=== PATIENT | male | born 1965 | race Caucasian/White ===

== ENCOUNTER 2017-08-03 13:09 | Emergency (ER) | payer MEDICAID, OTHER ==
[~2017-08-03] VITALS: Ht 170.2 cm; Wt 81.6 kg
--- OUTSIDE RECORDS SUMMARY | 2017-08-03 13:24 | XMS REPORT ---
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 Name Role Phone PAMELLA MURPHY PCP Unavailable PAMELLA MURPHY PreferredProvider Unavailable Allergies and Adverse Reactions Name Reaction Notes Aspirin Plan of Treatment Planned Activity Comments Planned Date Planned Time Plan/Goal IM Injection 11/17/2015 12:00 AM General health panel (comprehensive metabolic panel, CBC, TSH) 11/05/2016 12:00 AM LIPID PANEL 11/05/2016 12:00 AM HEMOGLOBIN A1C 11/05/2016 12:00 AM Drug Screen - Non Medicare 09/26/2014 12:00 AM Urine drug screen (amphetamine, barbiturate, cocaine, opiates, PCP, methaqualone, benzodiazepine) 09/26/2014 12:00 AM Medications Active Name Start Date Estimated Completion Date SIG Comments Aspir-81 81 mg oral tablet,delayed release (DR/EC) take 1 tablet (81 mg ) by oral route once daily metformin 500 mg oral tablet extended release 24 hr 08/15/2014 take 2 tablets (1,000 mg) by oral route once daily with the evening meal for a week then increase to 2 tabs BID with meals Lantus Solostar 100 unit/mL (3 mL) subcutaneous insulin pen 08/15/2014 inject by subcutaneous route 10U at HS Replaced/Ret[employer] Drug 31 miscellaneous needle 08/15/2014 use as directed [employer] Ultra System Kit miscellaneous kit 08/30/2014 use as directed Test Blood Sugar BID glimepiride 2 mg oral tablet 11/18/2014 take 1 tablet (2 mg) by oral route once daily Lantus Solostar 100 unit/mL (3 mL) subcutaneous insulin pen 12/27/2014 INJECT 10 UNITS SUBCUTANEOUSLY DAILY AT BEDTIME pravastatin 40 mg oral tablet 04/27/2015 take 1 tablet (40 mg) by oral route once daily at bedtime Lantus Solostar 100 unit/mL (3 mL) subcutaneous insulin pen 04/27/2015 INJECT 10 UNITS SUBCUTANEOUSLY DAILY AT BEDTIME OneTouch Ultra Test miscellaneous strip 05/03/2015 USE TO TEST BLOOD SUGAR THREE TIMES DAILY NEEDED DIABETES BD Insulin Pen Needle UF Mini 31 gauge x 16" miscellaneous needle 05/03/2015 USE DIRECTED Lancets,Ultra Thin 26 gauge miscellaneous misc 06/26/2015 Check blood sugars TID glimepiride 2 mg oral tablet 06/26/2015 take 1 tablet (2 mg) by oral route once daily metformin 500 mg oral tablet extended release 24 hr 08/15/2015 TAKE 2 TABLETS BY MOUTH ONCE DAILY WITH EVENING MEAL FOR 7 DAYS THEN INCREASE TO 2 TABLETS TWICE DAILY WITH MEALS metformin 500 mg oral tablet extended release 24 hr 09/18/2015 TAKE 2 TABLETS BY MOUTH ONCE DAILY WITH EVENING MEAL FOR 7 DAYS THEN INCREASE TO 2 TABLETS TWICE DAILY WITH MEALS OneTouch Ultra Test miscellaneous strip 10/30/2015 USE TO TEST BLOOD SUGAR THREE TIMES DAILY NEEDED DIABETES pravastatin 40 mg oral tablet 10/30/2015 take 1 tablet (40 mg) by oral route once daily at bedtime Ventolin HFA 90 mcg/actuation inhalation HFA aerosol inhaler 11/14/2015 inhale 2 puffs (180 mcg) by inhalation route every 4 hours as needed metformin 500 mg oral tablet extended release 24 hr 12/05/2015 TAKE 2 TABLETS BY MOUTH ONCE DAILY WITH EVENING MEAL FOR 7 DAYS THEN INCREASE TO 2 TABLETS TWICE DAILY WITH MEALS Ventolin HFA 90 mcg/actuation inhalation HFA aerosol inhaler 01/12/2016 INHALE TWO PUFFS BY MOUTH EVERY 4 HOURS NEEDED metformin 500 mg oral tablet extended release 24 hr 02/28/2016 TAKE 2 TABLETS BY MOUTH ONCE DAILY WITH EVENING MEAL FOR 7 DAYS THEN INCREASE TO 2 TABLETS TWICE DAILY WITH MEALS BD Insulin Pen Needle UF Mini 31 gauge x 16" miscellaneous needle 03/04/2016 USE DIRECTED metformin 500 mg oral tablet extended release 24 hr 03/26/2016 TAKE 2 TABLETS BY MOUTH ONCE DAILY WITH EVENING MEAL FOR 7 DAYS THEN INCREASE TO 2 TABLETS TWICE DAILY WITH MEALS hydrocodone-acetaminophen 10-325 mg oral tablet take 1 tablet by oral route every 6 hours as needed for pain pravastatin 40 mg oral tablet 07/03/2016 TAKE 1 TABLET BY MOUTH ONCE DAILY AT BEDTIME metformin 500 mg oral tablet extended release 24 hr 07/03/2016 TAKE 2 TABLETS BY MOUTH ONCE DAILY WITH EVENING MEAL FOR 7 DAYS THEN INCREASE TO 2 TABLETS TWICE DAILY WITH MEALS Voltaren 1 % topical gel 08/05/2016 apply 2 gram to the affected area(s) by topical route 4 times per day glimepiride 2 mg oral tablet 08/14/2016 take 2 tablets (4 mg) by oral route once daily for 30 days ONETOUCH JAMIE ULTRA BL 09/17/2016 TEST BLOOD SUGAR THREE TIMES DAILY NEEDED Lantus Solostar 100 unit/mL (3 mL) subcutaneous insulin pen 09/17/2016 INJECT 10 UNITS SUBCUTANEOUSLY DAILY AT BEDTIME metformin 500 mg oral tablet extended release 24 hr 10/18/2016 01/16/2017 TAKE 2 TABLETS BY MOUTH TWICE DAILY WITH MEALS Name Start Date Expiration Date SIG Comments carvedilol 6.25 mg oral tablet take 1 tablet (6.25 mg) by oral route 2 times per day with food enalapril maleate 5 mg oral tablet take 1 tablet (5 mg) by oral route once daily Anaprox DS 550 mg oral tablet 08/15/2014 take 1 tablet (550 mg) by oral route every 12 hours as needed cyclobenzaprine 10 mg oral tablet 08/15/2014 take 1 tablet by oral route 3 times a day As Needed Medrol (Zach) 4 mg oral tablets,dose pack 09/26/2014 take as directed triamcinolone acetonide 0.5 % topical ointment 01/30/2015 apply a thin layer to the affected area(s) by topical route 3 times per day Zithromax Z-Zach 250 mg oral tablet 01/30/2015 02/04/2015 take 2 tablets (500 mg ) by oral route once daily for 1 day then 1 tablet (250 mg) by oral route once daily for 4 days Ciprodex 0.3-0.1 % otic drops,suspension 11/17/2015 11/24/2015 instill 4 drops into right ear by otic route 2 times per day for 7 days Levaquin 750 mg oral tablet 11/21/2015 11/26/2015 take 1 tablet (750 mg) by oral route once daily for 5 days clindamycin HCl 300 mg oral capsule 11/28/2015 12/08/2015 take 1 capsule by oral route 3 times a day for 10 days naproxen sodium 550 mg oral tablet 01/25/2016 take 1 tablet (550 mg) by oral route every 12 hours as needed tramadol 50 mg oral tablet 01/25/2016 take 1 tablet (50 mg) by oral route every 6 hours as needed glimepiride 2 mg oral tablet 02/08/2016 09/05/2016 take 2 tablets (4 mg) by oral route once daily for 30 days One Touch Test stips 03/18/2016 07/16/2016 Test Blood sugar TID PRN for Diabetes Type 2 Discontinued Name Start Date Discontinued Date SIG Comments metformin 500 mg oral tablet 08/15/2014 take 1 tablet (500 mg) by oral route 2 times per day with morning and evening meals glipizide 10 mg oral tablet 08/15/2014 take 1 tablet (10 mg) by oral route 2 times per day before meals ran out, no coverage Glucometer II 08/15/2014 08/30/2014 Glucometer, pharmacists choice meter and strips DX 250, to test BID Contour Test Strips miscellaneous strip 08/23/2014 08/30/2014 use as directed Neurontin 300 mg oral capsule 09/26/2014 01/19/2015 take 1 capsule (300 mg) by oral route 3 times per day for 30 days pt states it didnt work hydrocodone-ibuprofen 7.5-200 mg oral tablet 11/18/2014 11/17/2015 take 1 tablet by oral route 3 times a day as needed clopidogrel 75 mg oral tablet 04/27/2015 01/10/2016 take 1 tablet (75 mg) by oral route once daily doxycycline hyclate 100 mg oral capsule 11/14/2015 11/17/2015 take 1 capsule ( 100 mg) by oral route every 12 hours for 10 days promethazine-codeine 6.25-10 mg/5 mL oral syrup 11/14/2015 11/17/2015 take 5 milliliters by oral route every 4-6 hours as needed, not to exceed 30 mL in 24 hours Sheldon 7.5-325 mg oral tablet 11/17/2015 01/25/2016 take 1 tablet by oral route every 4-6 hours as needed for pain Problem List Description Status Onset Diabetes Mellitus, Type II, Uncontrolled Active Anemia Active Hyperlipidemia Active Degeneration of lumbar intervertebral disc Active 08/29/2014 Lumbago Active 08/29/2014 Hypertension Active 10/19/2014 Acute suppurative otitis media of right ear with spontaneous rupture of tympanic membrane, recurrence not specified Active 11/17/2015 Coronary artery disease due to lipid rich plaque Active 05/21/2016 Type 2 diabetes mellitus Active 05/21/2016 Vital Signs Date Time BP-Sys(mm[Hg] BP-Rebecca(mm[Hg]) HR(bpm) RR(rpm) Temp WT HT HC BMI BSA BMI Percentile O2 Sat(%) 08/05/2016 9:43:00 AM 122 mmHg 80 mmHg 76 bpm 14 rpm 95.6 F 200 lbs 68 in 30.41 kg/m2 2.09 m2 99 % 05/21/2016 10:35:00 AM 152 mmHg 80 mmHg 76 bpm 18 rpm 96.5 F 202 lbs 67 in 31.6373 kg/m 2.0812 m 97 % 01/25/2016 10:14:00 AM 140 mmHg 80 mmHg 85 bpm 16 rpm 96.5 F 192.5 lbs 67 in 30.15 kg/m2 2.03 m2 97 % 01/10/2016 10:29:00 AM 112 mmHg 80 mmHg 67 bpm 18 rpm 96.5 F 198 lbs 67 in 31.0109 kg/m 2.0605 m 99 % 12/07/2015 3:07:00 PM 130 mmHg 70 mmHg 76 bpm 11/28/2015 10:41:00 AM 142 mmHg 88 mmHg 70 bpm 16 rpm 96.8 F 199 lbs 67 in 31.1675 kg/m 2.0657 m 97 % 11/21/2015 10:42:00 AM 140 mmHg 80 mmHg 75 bpm 96.6 F 197.75 lbs 98 % 11/17/2015 10:59:00 AM 130 mmHg 78 mmHg 76 bpm 22 rpm 97.3 F 201 lbs 97 % 11/14/2015 1:58:00 PM 138 mmHg 84 mmHg 84 bpm 20 rpm 97.2 F 199.75 lbs 67 in 31.28 kg/m2 2.07 m2 98 % 09/06/2015 10:26:00 AM 132 mmHg 76 mmHg 72 bpm 16 rpm 98.2 F 194 lbs 67 in 30.3844 kg/m 2.0396 m 97 % 01/31/2015 3:15:00 PM 142 mmHg 64 mmHg 86 bpm 18 rpm 96.2 F 191.312 lbs 67 in 29.96 kg/m2 2.03 m2 99 % 01/23/2015 10:26:00 AM 144 mmHg 80 mmHg 90 bpm 18 rpm 96.8 F 191.25 lbs 100 % 01/19/2015 10:45:00 AM 146 mmHg 86 mmHg 81 bpm 18 rpm 97.4 F 192 lbs 67 in 30.0711 kg/m 2.03 m2 100 % 12/19/2014 10:33:00 AM 140 mmHg 88 mmHg 98 bpm 18 rpm 96.9 F 183 lbs 67 in 28.66 kg/m2 1.9809 m 100 % 11/18/2014 10:37:00 AM 130 mmHg 66 mmHg 81 bpm 18 rpm 97.1 F 191.75 lbs 97 % 10/18/2014 1:34:00 PM 82 bpm 18 rpm 97.1 F 192 lbs 67 in 30.07 kg/m2 2.029 m 98 % 09/26/2014 1:34:00 PM 132 mmHg 68 mmHg 72 bpm 18 rpm 97.8 F 188 lbs 67 in 29.4447 kg/m 2.01 m2 08/11/2014 10:38:00 AM 132 mmHg 74 mmHg 84 bpm 18 rpm 98.2 F 186.5 lbs 67 in 29.21 kg/m2 1.9998 m 99 % Social History Name Description Comments lives with girlfriend Lives with Daughter Engaged Did not graduate from High School Chewing Tobacco Denies substance abuse denies alcohol use UNEMPLOYEED History of Procedures Date Ordered Description Order Status 08/29/2015 12:00 AM ROUTINE VENIPUNCTURE Reviewed 08/29/2015 12:00 AM LIPID PANEL Reviewed 08/29/2015 12:00 AM GLYCOSYLATED HEMOGLOBIN TEST Reviewed 11/17/2015 12:00 AM Rocephin 1 gram [facility]#[id number] Reviewed 12/06/2015 12:00 AM ROUTINE VENIPUNCTURE Reviewed 12/06/2015 12:00 AM GENERAL HEALTH PANEL Reviewed 12/06/2015 12:00 AM LIPID PANEL Returned 12/06/2015 12:00 AM GLYCOSYLATED HEMOGLOBIN TEST Returned 01/25/2016 12:00 AM RADEX SHOULDER COMPLETE MINIMUM 2 VIEWS Reviewed 03/19/2016 12:00 AM ROUTINE VENIPUNCTURE Reviewed 03/19/2016 12:00 AM LIPID PANEL Returned 03/19/2016 12:00 AM GLYCOSYLATED HEMOGLOBIN TEST Returned 03/19/2016 12:00 AM GENERAL HEALTH PANEL Returned 05/29/2016 12:00 AM IM ADM PRQ ID SUBQ/IM NJXS 1 VACCINE Reviewed 05/29/2016 12:00 AM PNEUMOCOCCAL VACC 13 JOSE IM Reviewed 07/02/2016 12:00 AM ROUTINE VENIPUNCTURE Reviewed 07/02/2016 12:00 AM GLYCOSYLATED HEMOGLOBIN TEST Returned 07/02/2016 12:00 AM GENERAL HEALTH PANEL Returned 07/02/2016 12:00 AM LIPID PANEL Returned 11/05/2016 12:00 AM COLLECTION VENOUS BLOOD VENIPUNCTURE Reviewed 08/12/2014 12:00 AM ROUTINE VENIPUNCTURE Reviewed 08/12/2014 12:00 AM COMPLETE CBC W/AUTO DIFF WBC Reviewed 08/12/2014 12:00 AM COMPREHEN METABOLIC PANEL Reviewed 08/12/2014 12:00 AM LIPID PANEL Reviewed 08/12/2014 12:00 AM GLYCOSYLATED HEMOGLOBIN TEST Reviewed 08/12/2014 12:00 AM ASSAY THYROID STIM HORMONE Reviewed 09/26/2014 12:00 AM MRI LUMBAR SPINE W/O & W/DYE Reviewed 11/15/2014 12:00 AM ROUTINE VENIPUNCTURE Reviewed 11/15/2014 12:00 AM COMPREHEN METABOLIC PANEL Reviewed 11/15/2014 12:00 AM GLYCOSYLATED HEMOGLOBIN TEST Reviewed Results Summary Data and Description Results 08/12/2014 2:24 PM WBC 8.9 RBC 5.18 HGB 17.0 g/dLHCT 46.90 %MCV 91.0 fLMCH 32.80 pgMCHC 36.20 g/dLRDW SD 42 RDW CV 12.70 %MPV 11.30 fLPLT 165 NRBC# 0.00 NRBC% 0.0 %NEUT 59.90 %%LYMP 31.20 %%MONO 6.30 %%EOS 2.10 %%BASO 0.50 %#NEUT 5.32 #LYMP 2.77 #MONO 0.56 #EOS 0.19 #BASO 0.04 MANUAL DIFF NOT IND TRIGLYCERIDES 136.0 mg/dLCHOLESTEROL 123.0 mg/dLHDL 31.0 mg/dLTOT CHOL/HDL 4.0 LDL (CALC) 65.0 mg/dLGLUCOSE 304.0 mg/dLSODIUM 138.0 mmol/LPOTASSIUM 4.50 mmol/ LCHLORIDE 100.0 mmol/LCO2 30.0 mmol/LBUN 21.0 mg/dLCREATININE 0.90 mg/dLSGOT/ AST 24.0 IU/LSGPT/ALT 45.0 IU/LALK PHOS 61.0 IU/LTOTAL PROTEIN 7.10 g/dLALBUMIN 4.40 g/dLTOTAL BILI 0.70 mg/dLCALCIUM 9.90 mg/dLAGE 49 GFR NonAA 89 GFR AA 108 eGFR 60 eGFR AA* 60 TSH 0.820 uIU/mLHGB A1C 12.10 %Est Avg Glucose 300.6 mg/dL 11/15/2014 2:46 PM GLUCOSE 217.0 mg/dLSODIUM 140.0 mmol/LPOTASSIUM 4.20 mmol/ LCHLORIDE 105.0 mmol/LCO2 25.0 mmol/LBUN 16.0 mg/dLCREATININE 0.90 mg/dLSGOT/ AST 19.0 IU/LSGPT/ALT 38.0 IU/LALK PHOS 46.0 IU/LTOTAL PROTEIN 6.80 g/dLALBUMIN 4.50 g/dLTOTAL BILI 0.60 mg/dLCALCIUM 9.80 mg/dLAGE 49 GFR NonAA 89 GFR AA 108 eGFR >60 mL/min/1.73 m2eGFR AA* >60 HGB A1C 9.80 %Est Avg Glucose 234.6 mg/dL 08/29/2015 4:06 PM PSA TOTAL 0.710 ng/mLHemoglobin A1c 7.20 %Estim. Avg Glu (eAG ) 160 TRIGLYCERIDES 122.0 mg/dLCHOLESTEROL 152.0 mg/dLHDL 34.0 mg/dLTOT CHOL/ HDL 4.5 LDL (CALC) 94.0 mg/dL 12/06/2015 2:12 PM TRIGLYCERIDES 110.0 mg/dLCHOLESTEROL 146.0 mg/dLHDL 35.0 mg/ dLTOT CHOL/HDL 4.2 LDL (CALC) 89.0 mg/dLGLUCOSE 146.0 mg/dLSODIUM 142.0 mmol/ LPOTASSIUM 4.20 mmol/LCHLORIDE 105.0 mmol/LCO2 30.0 mmol/LBUN 14.0 mg/ dLCREATININE 0.90 mg/dLSGOT/AST 28.0 IU/LSGPT/ALT 55.0 IU/LALK PHOS 66.0 IU/ LTOTAL PROTEIN 6.0 g/dLALBUMIN 4.10 g/dLTOTAL BILI 0.50 mg/dLCALCIUM 9.20 mg/ dLAGE 50 GFR NonAA 89 GFR AA 108 eGFR >60 mL/min/1.73meGFR AA* >60 WBC 7.9 RBC 4.86 HGB 15.60 g/dLHCT 44.60 %MCV 92.0 fLMCH 32.10 pgMCHC 35.0 g/dLRDW SD 43 RDW CV 12.80 %MPV 10.80 fLPLT 188 NRBC# 0.00 NRBC% 0.0 %NEUT 54.80 %%LYMP 35.20 %%MONO 6.60 %%EOS 2.30 %%BASO 0.80 %#NEUT 4.31 #LYMP 2.77 #MONO 0.52 #EOS 0.18 #BASO 0.06 MANUAL DIFF NOT IND TSH 2.150 uIU/mLHemoglobin A1c 8.60 %Estim. Avg Glu (eAG) 200 03/19/2016 2:50 PM WBC 8.7 RBC 4.87 HGB 15.50 g/dLHCT 45.60 %MCV 94.0 fLMCH 31.80 pgMCHC 34.0 g/dLRDW SD 41 RDW CV 11.90 %MPV 10.50 fLPLT 190 NRBC# 0.00 NRBC% 0.0 %NEUT 44.90 %%LYMP 46.0 %%MONO 5.70 %%EOS 2.70 %%BASO 0.60 %#NEUT 3.90 #LYMP 3.98 #MONO 0.49 #EOS 0.23 #BASO 0.05 MANUAL DIFF NOT IND TSH 2.690 uIU/mLHGB A1C 7.0 %Est Avg Glucose 154.2 mg/dLTRIGLYCERIDES 66.0 mg/ dLCHOLESTEROL 131.0 mg/dLHDL 37.0 mg/dLTOT CHOL/HDL 3.5 LDL (CALC) 81.0 mg/ dLGLUCOSE 100.0 mg/dLSODIUM 139.0 mmol/LPOTASSIUM 4.50 mmol/LCHLORIDE 104.0 mmol /LCO2 26.0 mmol/LBUN 21.0 mg/dLCREATININE 0.80 mg/dLSGOT/AST 27.0 IU/LSGPT/ALT 45.0 IU/LALK PHOS 51.0 IU/LTOTAL PROTEIN 6.30 g/dLALBUMIN 4.20 g/dLTOTAL BILI 0.40 mg/dLCALCIUM 9.50 mg/dLAGE 51 GFR NonAA 102 GFR AA 124 eGFR >60 mL/min/ 1.73meGFR AA* >60 07/02/2016 2:14 PM WBC 9.7 RBC 4.91 HGB 15.90 g/dLHCT 45.20 %MCV 92.0 fLMCH 32.40 pgMCHC 35.20 g/dLRDW SD 41 RDW CV 12.20 %MPV 10.50 fLPLT 192 NRBC# 0.00 NRBC% 0.0 %NEUT 53.30 %%LYMP 37.70 %%MONO 5.90 %%EOS 2.10 %%BASO 0.70 %#NEUT 5.20 #LYMP 3.67 #MONO 0.57 #EOS 0.20 #BASO 0.07 MANUAL DIFF NOT IND TRIGLYCERIDES 73.0 mg/dLCHOLESTEROL 134.0 mg/dLHDL 35.0 mg/dLTOT CHOL/HDL 3.8 LDL (CALC) 84.0 mg/dLGLUCOSE 195.0 mg/dLSODIUM 138.0 mmol/LPOTASSIUM 3.80 mmol/ LCHLORIDE 102.0 mmol/LCO2 28.0 mmol/LBUN 18.0 mg/dLCREATININE 0.80 mg/dLSGOT/ AST 21.0 IU/LSGPT/ALT 32.0 IU/LALK PHOS 52.0 IU/LTOTAL PROTEIN 6.40 g/dLALBUMIN 4.20 g/dLTOTAL BILI 0.30 mg/dLCALCIUM 9.30 mg/dLAGE 51 GFR NonAA 102 GFR AA 124 eGFR >60 mL/min/1.73meGFR AA* >60 HGB A1C 7.10 %Est Avg Glucose 157.1 mg/ dLTSH 2.20 uIU/mL History Of Immunizations Name Date Admin Mfg Name Mfg Code Trade Name Lot# Route Inj Vis Given Vis Pub CVX Pneumococcal 05/29/2016 Pf[employer] PFR Prevnar 13 [id number] Intramuscular Left Deltoid 05/29/2016 06/29/2015 133 History of Past Illness Name Date of Onset Comments Anemia ITP Diabetes Mellitus, Type II, Uncontrolled Hyperlipidemia Degeneration of lumbar intervertebral disc 08/29/2014 Lumbago 08/29/2014 Hypertension 10/19/2014 Acute suppurative otitis media of right ear with spontaneous rupture of tympanic membrane, recurrence not specified 11/17/2015 Coronary artery disease due to lipid rich plaque 05/21/2016 Type 2 diabetes mellitus 05/21/2016 Hypertension Aug 12 2014 9:44AM Diabetes Mellitus, Type II Aug 12 2014 9:44AM Hyperlipidemia Aug 12 2014 9:44AM Diabetes Mellitus, Type II, Uncontrolled Aug 11 2014 10:41AM Anemia Aug 11 2014 10:41AM Hyperlipidemia Aug 11 2014 10:41AM Lumbago Aug 11 2014 10:41AM Degeneration of lumbar intervertebral disc Aug 11 2014 10:41AM Lumbar Radiculitis Feb 2014 1:42PM Myofascial pain Feb 2014 1:42PM Post laminectomy syndrome Feb 2 2014 1:42PM Cauda equina compression Feb 2014 1:42PM Drug abuse and dependence b 2014 1:42PM Chronic pain disorder b 2014 2:55PM Degeneration of lumbar intervertebral disc Oct 18 2014 1:35PM Lumbago Oct 18 2014 1:35PM Diabetes Mellitus, Type II, Uncontrolled Oct 18 2014 1:35PM Hyperlipidemia Oct 18 2014 1:35PM Hypertension Oct 18 2014 1:35PM Diabetes Mellitus, Type II Nov 15 2014 2:50PM Degeneration of lumbar intervertebral disc Nov 18 2014 10:39AM Hypertension Nov 18 2014 10:39AM Lumbago Nov 18 2014 10:39AM Diabetes Mellitus, Type II, Uncontrolled Nov 18 2014 10:39AM Hyperlipidemia Nov 18 2014 10:39AM Hypertension Dec 19 2014 10:35AM Diabetes Mellitus, Type II, Uncontrolled Dec 19 2014 10:35AM Hyperlipidemia Dec 19 2014 10:35AM Hypertension Jan 19 2015 10:48AM Lumbago Jan 19 2015 10:48AM Diabetes Mellitus, Type II, Uncontrolled Jan 19 2015 10:48AM Hyperlipidemia Jan 19 2015 10:48AM Poison sumac Jan 23 2015 10:28AM Acute bronchitis Jan 31 2015 3:20PM Hypertension Aug 29 2015 8:45AM Diabetes Mellitus, Type II Aug 29 2015 8:45AM Hyperlipidemia Aug 29 2015 8:45AM Screening for prostate cancer Aug 29 2015 8:45AM Degeneration of lumbar intervertebral disc Sep 06 2015 10:29AM Hypertension Sep 06 2015 10:29AM Diabetes Mellitus, Type II, Uncontrolled Sep 06 2015 10:29AM Hyperlipidemia Sep 06 2015 10:29AM Acute bacterial otitis media, right Nov 14 2015 1:59PM Acute bronchitis Nov 14 2015 1:59PM Acute suppurative otitis media of right ear with spontaneous rupture of tympanic membrane, recurrence not specified Nov 17 2015 11:01AM Acute bronchitis, unspecified organism Nov 17 2015 11:01AM Acute suppurative otitis media of right ear with spontaneous rupture of tympanic membrane, recurrence not specified Improving Nov 21 2015 10:46AM Otitis media of right ear follow-up, not resolved Nov 28 2015 10:44AM Hypertension Dec 06 2015 8:17AM Diabetes mellitus, type 2 Dec 06 2015 8:17AM Hyperlipidemia Dec 06 2015 8:17AM Right anterior shoulder pain Jan 25 2016 10:15AM Diabetes Mellitus, Type II, Uncontrolled Jan 10 2016 10:33AM Hypertension Feb 21 2016 9:11AM Diabetes Mellitus, Type II, Uncontrolled Feb 21 2016 9:11AM Anemia Feb 21 2016 9:11AM Hyperlipidemia Feb 21 2016 9:11AM Hypertension Mar 19 2016 8:19AM Diabetes Mellitus, Type II Mar 19 2016 8:19AM Hyperlipidemia Mar 19 2016 8:19AM Hypertension May 21 2016 10:40AM Lumbago May 21 2016 10:40AM Hyperlipidemia May 21 2016 10:40AM Type 2 diabetes mellitus May 21 2016 10:40AM Coronary artery disease due to lipid rich plaque May 21 2016 10:40AM Pneumonia vaccine May 29 2016 4:52PM Hypertension Jul 02 2016 8:30AM Diabetes Mellitus, Type II Jul 02 2016 8:30AM Hyperlipidemia Jul 02 2016 8:30AM Atherosclerotic heart disease of [place] coronary artery without angina pectoris Aug 05 2016 9:45AM Coronary atherosclerosis due to lipid rich plaque Aug 05 2016 9:45AM Degeneration of lumbar intervertebral disc Aug 05 2016 9:45AM Hypertension Aug 05 2016 9:45AM Lumbago Aug 05 2016 9:45AM Type 2 diabetes mellitus Aug 05 2016 9:45AM Hyperlipidemia Aug 05 2016 9:45AM Biceps tendinitis of right upper extremity Aug 05 2016 9:45AM Hypertension Nov 05 2016 10:19AM Diabetes mellitus, type II Nov 05 2016 10:19AM Payers Insurance Name Company Name Plan Name Plan Number Policy Number Policy Group Number Start Date [facility] Comm [id number] Sunday, 2013 [facility] Comm Plan of [id number] N/A History of Encounters Visit Date Visit Type Provider 11/05/2016 Laboratory PAMELLA MURPHY [employer]TER 08/05/2016 Office visit PAMELLA MURPHY SH[employer] SORTER 07/02/2016 Laboratory PAMELLA ShieldsJuan Francisco MURPHY SHIRT SORTER 05/29/2016 Nurse visit PAMELLA MURPHY SH[employer] SORTER 05/21/2016 Office visit PAMELLA MURPHY SH[employer] SORTER 03/19/2016 Laboratory PAMELLA MURPHY SH[employer] SORTER 01/25/2016 Office visit PAMELLA MURPHY SH[employer] SORTER 01/10/2016 Office visit PAMELLA MURPHY SH[employer] SORTER 12/07/2015 Office visit PAMELLA MURPHY SH[employer] SORTER 12/06/2015 Laboratory PAMELLA MURPHY SH[employer] SORTER 11/28/2015 Office visit PAMELLA MURPHY SH[employer] SORTER 11/21/2015 Office visit PAMELLA MURPHY SHIRT SORTER 11/17/2015 Office visit Bhakti Ennis [employer] 11/14/2015 Office visit PAMELLA MURPHY SH[employer] SORTER 09/06/2015 Office visit PAMELLA MURPHY SH[employer] SORTER 08/29/2015 Voided PAMELLA MURPHY SH[employer] S[employer]TER 01/31/2015 Office visit PAMELLA MURPHY SH[employer] SORTER 01/23/2015 Office visit PAMELLA MURPHY SH[employer] SORTER 01/19/2015 Office visit PAMELLA MURPHY SH[employer] SORTER 12/19/2014 Office visit PAMELLA MURPHY SH[employer] SORTER 11/18/2014 Office visit PAMELLA MURPHY SHIRT SORTER 11/15/2014 Office visit PAMELLA MRUPHY SHIRT SORTER 11/05/2014 Hospital Gil Gtz MD 10/18/2014 Office visit PAMELLA MURPHY [employer] 09/26/2014 Office visit Adeel Hodgson MD 08/12/2014 Laboratory PAMELLA MURPHY [employer] 08/11/2014 Office visit PAMELLA MURPHY [employer]TER
--- OUTSIDE RECORDS SUMMARY | 2017-08-03 13:25 | XMS REPORT ---
Author Author PAMELLA MURPHY [facility] Address [address] [facility] [address] [place], [place] [id number] Care Team Providers Care Ball Truing Machine Operator Name Role Phone PAMELLA MURPHY PCP Unavailable Allergies and Adverse Reactions Name Reaction Notes Aspirin Plan of Treatment Planned Activity Comments Planned Date Planned Time Plan/Goal GLYCOSYLATED HEMOGLOBIN TEST 08/29/2015 12:00 AM LIPID PANEL 08/29/2015 12:00 AM THER/PROPH/DIAG INJ SC/IM 11/17/2015 12:00 AM GENERAL HEALTH PANEL 12/06/2015 12:00 AM Multiple drug screening detection 09/26/2014 12:00 AM Urine drug screen (amphetamine, [...] 31 miscellaneous needle 08/15/2014 use as directed [employer] Ultra System Kit miscellaneous kit 08/30/2014 use [...] Pen Needle UF Mini 31 gauge x 11/07" miscellaneous needle 05/03/2015 USE DIRECTED Lancets,Ultra Thin [...] inhalation route every 4 hours as needed [place] 7.5-325 mg oral tablet 11/17/2015 take 1 tablet by oral route every 4 -6 hours as needed for pain metformin 500 mg oral tablet extended release 24 hr 12/05/2015 TAKE 2 TABLETS BY MOUTH ONCE DAILY WITH EVENING MEAL FOR 7 DAYS THEN INCREASE TO 2 TABLETS TWICE DAILY WITH MEALS glimepiride 2 mg oral tablet 01/12/2016 08/09/2016 take 2 tablets by oral route 2 times a day for 30 days Name Start Date Expiration Date SIG Comments [...] oral tablets,dose pack 09/26/2014 take as directed One Touch Test stips 12/20/2014 04/19/2015 Test Blood sugar TID PRN for Diabetes Type 2 triamcinolone acetonide 0.5 % topical ointment 01/30/2015 [...] 3 times a day for 10 days Discontinued Name Start Date Discontinued Date SIG [...] to exceed 30 mL in 24 hours Problem List Description Status Onset Diabetes Mellitus, Type II, Uncontrolled Active Anemia Active Hyperlipidemia Active Degeneration of lumbar intervertebral disc Active 08/29/2014 Lumbago Active 08/29/2014 Hypertension Active 10/19/2014 Acute suppurative otitis media of right ear with spontaneous rupture of tympanic membrane, recurrence not specified Active 11/17/2015 Vital Signs Date Time BP-Sys(mm[Hg] BP-Rebecca(mm[Hg]) HR(bpm) RR(rpm) Temp WT HT HC BMI BSA BMI Percentile O2 Sat(%) 01/10/2016 10:29:00 AM 112 mmHg 80 mmHg 67 bpm 18 rpm 96.5 F 198 lbs 67 in 31.01 kg/m2 2.06 m2 99 % 11/28/2015 10:41:00 AM 142 mmHg 88 mmHg [...] rpm 97.4 F 192 lbs 67 in 30.07 kg/m2 2.03 m2 100 % 12/19/2014 10:33:00 AM 140 mmHg 88 mmHg 98 bpm 18 rpm 96.9 F 183 lbs 67 in 28.6616 kg/m 1.9809 m 100 % 11/18/2014 10:37:00 AM 130 mmHg 66 mmHg 81 bpm 18 rpm 97.1 F 191.75 lbs 97 % 10/18/2014 1:34:00 PM 82 bpm 18 rpm 97.1 F 192 lbs 67 in 30.0711 kg/m 2.029 m 98 % 09/26/2014 1:34:00 PM 132 mmHg 68 mmHg 72 bpm 18 rpm 97.8 F 188 lbs 67 in 29.44 kg/m2 2.01 m2 08/11/2014 10:38:00 AM 132 mmHg 74 mmHg 84 bpm 18 rpm 98.2 F 186.5 lbs 67 in 29.2097 kg/m 1.9998 m 99 % Social History Name Description Comments lives with girlfriend Lives with Daughter Engaged Did not graduate from High School Chewing Tobacco Denies substance abuse denies alcohol use UNEMPLOYEED History of Procedures Date Ordered Description Order Status 08/29/2015 12:00 AM GLYCOSYLATED HEMOGLOBIN TEST Returned 11/17/2015 12:00 AM Rocephin 1 gram [facility]#[id number] Reviewed 12/06/2015 12:00 AM LIPID PANEL Returned 12/06/2015 12:00 AM GLYCOSYLATED HEMOGLOBIN TEST Returned 08/12/2014 12:00 AM ROUTINE VENIPUNCTURE Reviewed 08/12/2014 12:00 AM COMPLETE CBC W/AUTO DIFF WBC Returned 08/12/2014 12:00 AM COMPREHEN METABOLIC PANEL Returned 08/12/2014 12:00 AM LIPID PANEL Returned 08/12/2014 12:00 AM GLYCOSYLATED HEMOGLOBIN TEST Returned 08/12/2014 12:00 AM ASSAY THYROID STIM HORMONE Returned 09/26/2014 12:00 AM MRI LUMBAR SPINE W/O & W/DYE Returned 11/15/2014 12:00 AM ROUTINE VENIPUNCTURE Reviewed 11/15/2014 12:00 AM COMPREHEN METABOLIC PANEL Reviewed 11/15/2014 12:00 AM GLYCOSYLATED HEMOGLOBIN TEST Reviewed Results Summary Data and Description Results 08/12/2014 2:24 PM WBC 8.9 RBC 5.18 HGB 17.0 g/dLHCT 46.90 %MCV 91.0 fLMCH 32.80 pgMCHC 36.20 g/dLRDW CV 12.70 %MPV 11.30 fLPLT 165 %NEUT 59.90 %%LYMP 31.20 %%MONO 6.30 %%EOS 2.10 %%BASO 0.50 %#NEUT 5.32 #LYMP 2.77 #MONO 0.56 #EOS 0.19 #BASO 0.04 TRIGLYCERIDES 136.0 mg/dLCHOLESTEROL 123.0 mg/dLHDL 31.0 mg/ dLLDL (CALC) 65.0 mg/dLGLUCOSE 304.0 mg/dLSODIUM 138.0 mmol/LPOTASSIUM 4.50 mmol /LCHLORIDE 100.0 mmol/LCO2 30.0 mmol/LBUN 21.0 mg/dLCREATININE 0.90 mg/dLSGOT/ AST 24.0 IU/LSGPT/ALT 45.0 IU/LALK PHOS 61.0 IU/LTOTAL PROTEIN 7.10 g/dLALBUMIN 4.40 g/dLTOTAL BILI 0.70 mg/dLCALCIUM 9.90 mg/dLeGFR 60 TSH 0.820 uIU/mLHGB A1C 12.10 %Est Avg Glucose 300.6 mg/dL 11/15/2014 2:46 PM GLUCOSE 217.0 mg/dLSODIUM 140.0 mmol/LPOTASSIUM 4.20 mmol/ LCHLORIDE 105.0 mmol/LCO2 25.0 mmol/LBUN 16.0 mg/dLCREATININE 0.90 mg/dLSGOT/ AST 19.0 IU/LSGPT/ALT 38.0 IU/LALK PHOS 46.0 IU/LTOTAL PROTEIN 6.80 g/dLALBUMIN 4.50 g/dLTOTAL BILI 0.60 mg/dLCALCIUM 9.80 mg/dLeGFR >60 mL/min/1.73 m2HGB A1C 9.80 %Est Avg Glucose 234.6 mg/dL 08/29/2015 4:06 PM PSA TOTAL 0.710 ng/mLHemoglobin A1c 7.20 %TRIGLYCERIDES 122.0 mg/dLCHOLESTEROL 152.0 mg/dLHDL 34.0 mg/dLLDL (CALC) 94.0 mg/dL History Of Immunizations Not available. History of Past Illness Name Date of Onset Comments Anemia ITP Diabetes Mellitus, Type II, Uncontrolled Hyperlipidemia Degeneration of lumbar intervertebral disc 08/29/2014 Lumbago 08/29/2014 Hypertension 10/19/2014 Acute suppurative otitis media of right ear with spontaneous rupture of tympanic membrane, recurrence not specified 11/17/2015 Hypertension Aug 12 2014 9:44AM Diabetes Mellitus, Type II Aug 12 2014 9:44AM Hyperlipidemia Aug 12 2014 9:44AM Diabetes Mellitus, Type II, Uncontrolled Aug 11 2014 10:41AM Anemia Aug 11 2014 10:41AM Hyperlipidemia Aug 11 2014 10:41AM Lumbago Aug 11 2014 10:41AM Degeneration of lumbar intervertebral disc Aug 11 2014 10:41AM Lumbar Radiculitis Feb 2 2014 1:42PM Myofascial pain Feb 2014 1:42PM Post laminectomy syndrome Feb 2014 1:42PM Cauda equina compression Feb 2014 [...] 2015 8:17AM Hyperlipidemia Dec 06 2015 8:17AM Payers Insurance Name Company Name Plan Name Plan Number Policy Number Policy Group Number Start Date [facility] - Community Plan [facility] Comm [id number] Sunday, 2013 [facility] Comm Plan of [id number] N/A History of Encounters Visit Date Visit Type Provider 01/10/2016 Office visit PAMELLA MURPHY CONTINUOUS PICKLING LINE PICKLER HELPER 12/07/2015 Office visit PAMELLA MURPHY CONTINUOUS PICKLING LINE PICKLER HELPER 12/06/2015 Laboratory PAMELLA MURPHY CONTINUOUS PICKLING LINE PICKLER HELPER 11/28/2015 Office visit PAMELLA MURPHY CONTINUOUS PICKLING LINE PICKLER HELPER 11/21/2015 Office visit PAMELLA MURPHY CONTINUOUS PICKLING LINE PICKLER HELPER 11/17/2015 Office visit Bhakti MERINO 11/14/2015 Office visit PAMELLA MURPHY CONTINUOUS PICKLING LINE PICKLER HELPER 09/06/2015 Office visit PAMELLA MURPHY CONTINUOUS PICKLING LINE PICKLER HELPER 08/29/2015 Voided PAMELLA MURPHY CONTINUOUS PICKLING LINE PICKLER HELPER 01/31/2015 Office visit PAMELLA MURPHY CONTINUOUS PICKLING LINE PICKLER HELPER 01/23/2015 Office visit PAMELLA MURPHY CONTINUOUS PICKLING LINE PICKLER HELPER 01/19/2015 Office visit PAMELLA MURPHY CONTINUOUS PICKLING LINE PICKLER HELPER 12/19/2014 Office visit PAMELLA MURPHY CONTINUOUS PICKLING LINE PICKLER HELPER 11/18/2014 Office visit PAMELLA MURPHY CONTINUOUS PICKLING LINE PICKLER HELPER 11/15/2014 Office visit PAMELLA MURPHY CONTINUOUS PICKLING LINE PICKLER HELPER 11/05/2014 Hospital Gil Gtz MD 10/18/2014 Office visit PAMELLA MURPHY CONTINUOUS PICKLING LINE PICKLER HELPER 09/26/2014 Office visit Adeel Hodgson MD 08/12/2014 Laboratory PAMELLA MURPHY CONTINUOUS PICKLING LINE PICKLER HELPER 08/11/2014 Office visit PAMELLA MURPHY CONTINUOUS PICKLING LINE PICKLER HELPER
--- OUTSIDE RECORDS SUMMARY | 2017-08-03 13:25 | XMS REPORT ---
Author Author PAMELLA MURPHY [facility] Address [address] [facility] [address] [place], [place] [id number] Care Team Providers Care Grey Roll Man Name Role Phone PAMELLA MURPHY PCP Unavailable Allergies and Adverse Reactions Name Reaction Notes Aspirin Plan of Treatment Planned Activity Comments Planned Date Planned Time Plan/Goal GLYCOSYLATED HEMOGLOBIN TEST 08/29/2015 12:00 AM LIPID PANEL 08/29/2015 12:00 AM THER/PROPH/DIAG INJ SC/IM 11/17/2015 12:00 AM Multiple drug screening detection 09/26/2014 [...] 31 miscellaneous needle 08/15/2014 use as directed [employer] Ultra System Kit miscellaneous kit 08/30/2014 use as directed Test Blood Sugar BID glimepiride 2 mg oral tablet 11/18/2014 take 1 tablet (2 mg) by oral route once daily Lantus Solostar 100 unit/mL (3 mL) subcutaneous insulin pen 12/27/2014 INJECT 10 UNITS SUBCUTANEOUSLY DAILY AT BEDTIME triamcinolone acetonide 0.5 % topical ointment 01/30/2015 apply a thin layer to the affected area(s) by topical route 3 times per day pravastatin 40 mg oral tablet 04/27/2015 take 1 tablet (40 mg) by oral route once daily at bedtime clopidogrel 75 mg oral tablet 04/27/2015 take 1 tablet (75 mg) by oral route once daily Lantus [...] inhalation route every 4 hours as needed [place] 7.5-325 mg oral tablet 11/17/2015 take 1 tablet by oral route every 4 -6 hours as needed for pain clindamycin HCl 300 mg oral capsule 11/28/2015 12/08/2015 take 1 capsule by oral route 3 times a day for 10 days glimepiride 2 mg oral tablet 11/28/2015 take 2 tablets (4 mg) by oral route once daily Name Start Date Expiration Date SIG Comments [...] sugar TID PRN for Diabetes Type 2 Zithromax Z-Zahc 250 mg oral tablet 01/30/2015 02/04/2015 take [...] oral route once daily for 5 days Discontinued Name Start Date Discontinued Date [...] route 3 times a day as needed doxycycline hyclate 100 mg oral capsule 11/14/2015 [...] HC BMI BSA BMI Percentile O2 Sat(%) 11/28/2015 10:41:00 AM 142 mmHg 88 mmHg 70 bpm 16 rpm 96.8 F 199 lbs 67 in 31.17 kg/m2 2.07 m2 97 % 11/21/2015 10:42:00 AM 140 mmHg 80 mmHg 75 bpm 96.6 F 197.75 lbs 98 % 11/17/2015 10:59:00 AM 130 mmHg 78 mmHg 76 bpm 22 rpm 97.3 F 201 lbs 97 % 11/14/2015 1:58:00 PM 138 mmHg 84 mmHg 84 bpm 20 rpm 97.2 F 199.75 lbs 67 in 31.285 kg/m 2.0696 m 98 % 09/06/2015 10:26:00 AM 132 mmHg 76 mmHg 72 bpm 16 rpm 98.2 F 194 lbs 67 in 30.38 kg/m2 2.04 m2 97 % 01/31/2015 3:15:00 PM 142 mmHg 64 mmHg 86 bpm 18 rpm 96.2 F 191.312 lbs 67 in 29.9635 kg/m 2.0254 m 99 % 01/23/2015 10:26:00 AM 144 mmHg 80 mmHg 90 bpm 18 rpm 96.8 F 191.25 lbs 100 % 01/19/2015 10:45:00 AM 146 mmHg 86 mmHg 81 bpm 18 rpm 97.4 F 192 lbs 67 in 30.0711 kg/m 2.029 m 100 % 12/19/2014 10:33:00 AM 140 mmHg 88 mmHg 98 bpm 18 rpm 96.9 F 183 lbs 67 in 28.66 kg/m2 1.98 m2 100 % 11/18/2014 10:37:00 AM 130 mmHg 66 mmHg 81 bpm 18 rpm 97.1 F 191.75 lbs 97 % 10/18/2014 1:34:00 PM 82 bpm 18 rpm 97.1 F 192 lbs 67 in 30.07 kg/m2 2.03 m2 98 % 09/26/2014 1:34:00 PM 132 mmHg 68 mmHg 72 bpm 18 rpm 97.8 F 188 lbs 67 in 29.4447 kg/m 2.0078 m 08/11/2014 10:38:00 AM 132 mmHg 74 mmHg 84 bpm 18 rpm 98.2 F 186.5 lbs 67 in 29.21 kg/m2 2.00 m2 99 % Social History Name Description Comments lives with girlfriend Lives with Daughter Engaged Did not graduate from High School Chewing Tobacco Denies substance abuse denies alcohol use UNEMPLOYEED History of Procedures Date Ordered Description Order Status 08/29/2015 12:00 AM GLYCOSYLATED HEMOGLOBIN TEST Returned 11/17/2015 12:00 AM Rocephin 1 gram [facility]#[id number] Reviewed 08/12/2014 12:00 AM ROUTINE VENIPUNCTURE Reviewed [...] disc Aug 11 2014 10:41AM Lumbar Radiculitis Sep 26 2014 1:42PM Myofascial pain b 2014 1:42PM Post laminectomy syndrome 2014 1:42PM Cauda equina compression Sep 26 2014 1:42PM Drug abuse and dependence Sep 26 2014 1:42PM Chronic pain disorder Sep 26 2014 2:55PM Degeneration of lumbar intervertebral disc [...] follow-up, not resolved Nov 28 2015 10:44AM Payers Insurance Name Company Name Plan Name Plan Number Policy Number Policy Group Number Start Date [facility] Comm [id number] Sunday, 2013 [facility] Comm Plan of [id number] N/A History of Encounters Visit Date Visit Type Provider 11/28/2015 Office visit PAMELLA MURPHY RIG SUPERINTENDENT 11/21/2015 Office visit PAMELLA MURPHY RIG SUPERINTENDENT 11/17/2015 Office visit Bhakti MERINO 11/14/2015 Office visit PAMELLA MURPHY RIG SUPERINTENDENT 09/06/2015 Office visit PAMELLA MURPHY RIG SUPERINTENDENT 08/29/2015 Laboratory PAMELLA MURPHY RIG SUPERINTENDENT 01/31/2015 Office visit PAMELLA MURPHY RIG SUPERINTENDENT 01/23/2015 Office visit PAMELLA MURPHY RIG SUPERINTENDENT 01/19/2015 Office visit PAMELLA MURPHY RIG SUPERINTENDENT 12/19/2014 Office visit PAMELLA MURPHY RIG SUPERINTENDENT 11/18/2014 Office visit PAMELLA MURPHY RIG SUPERINTENDENT 11/15/2014 Office visit PAMELLA MURPHY RIG SUPERINTENDENT 11/05/2014 Hospital Gil Gtz MD 10/18/2014 Office visit PAMELLA MURPHY RIG SUPERINTENDENT 09/26/2014 Office visit Adeel Hodgson MD 08/12/2014 Laboratory PAMELLA MURPHY RIG SUPERINTENDENT 08/11/2014 Office visit PAMELLA MURPHY RIG SUPERINTENDENT
--- OUTSIDE RECORDS SUMMARY | 2017-08-03 13:26 | XMS REPORT ---
Author Author PAMELLA MURPHY [facility] Address [address] [facility] [address] [place], [place] [address] Care Team Providers Care Intensive Care Medicine Specialist Name Role Phone PAMELLA MURPHY PCP Unavailable Allergies and Adverse Reactions Name Reaction Notes Aspirin Plan of Treatment Planned Activity Comments Planned Date Planned Time Plan/Goal GLYCOSYLATED HEMOGLOBIN TEST 08/29/2015 12:00 AM LIPID PANEL 08/29/2015 12:00 AM THER/PROPH/DIAG INJ SC/IM 11/17/2015 12:00 AM GENERAL HEALTH PANEL 12/06/2015 12:00 AM X-RAY EXAM OF SHOULDER 01/25/2016 12:00 AM Multiple drug screening detection 09/26/2014 [...] 31 miscellaneous needle 08/15/2014 use as directed [employer] Ultra System Kit miscellaneous kit 08/30/2014 use [...] PUFFS BY MOUTH EVERY 4 HOURS NEEDED naproxen sodium 550 mg oral tablet 01/25/2016 take 1 tablet (550 mg) by oral route every 12 hours as needed tramadol 50 mg oral tablet 01/25/2016 take 1 tablet (50 mg) by oral route every 6 hours as needed glimepiride 2 mg oral tablet 02/08/2016 09/05/2016 take 2 tablets (4 mg) by oral route once daily for 30 days metformin 500 mg oral tablet extended release 24 hr 02/28/2016 TAKE 2 TABLETS BY MOUTH ONCE DAILY WITH EVENING MEAL FOR 7 DAYS THEN INCREASE TO 2 TABLETS TWICE DAILY WITH MEALS BD Insulin Pen Needle UF Mini 31 gauge x 16" miscellaneous needle 03/04/2016 USE DIRECTED Name Start Date Expiration Date SIG Comments [...] to exceed 30 mL in 24 hours [place] 7.5-325 mg oral tablet 11/17/2015 01/25/2016 take [...] HC BMI BSA BMI Percentile O2 Sat(%) 01/25/2016 10:14:00 AM 140 mmHg 80 mmHg [...] Returned 11/17/2015 12:00 AM Rocephin 1 gram [facility]#[id number] Reviewed 12/06/2015 12:00 AM LIPID PANEL Returned [...] 152.0 mg/dLHDL 34.0 mg/dLLDL (CALC) 94.0 mg/dL 12/06/2015 2:12 PM TRIGLYCERIDES 110.0 mg/dLCHOLESTEROL 146.0 mg/dLHDL 35.0 mg/ dLLDL (CALC) 89.0 mg/dLGLUCOSE 146.0 mg/dLSODIUM 142.0 mmol/LPOTASSIUM 4.20 mmol /LCHLORIDE 105.0 mmol/LCO2 30.0 mmol/LBUN 14.0 mg/dLCREATININE 0.90 mg/dLSGOT/ AST 28.0 IU/LSGPT/ALT 55.0 IU/LALK PHOS 66.0 IU/LTOTAL PROTEIN 6.0 g/dLALBUMIN 4.10 g/dLTOTAL BILI 0.50 mg/dLCALCIUM 9.20 mg/dLeGFR >60 mL/min/1.73mWBC 7.9 RBC 4.86 HGB 15.60 g/dLHCT 44.60 %MCV 92.0 fLMCH 32.10 pgMCHC 35.0 g/dLRDW CV 12.80 %MPV 10.80 fLPLT 188 %NEUT 54.80 %%LYMP 35.20 %%MONO 6.60 %%EOS 2.30 %% BASO 0.80 %#NEUT 4.31 #LYMP 2.77 #MONO 0.52 #EOS 0.18 #BASO 0.06 TSH 2.150 uIU/ mLHemoglobin A1c 8.60 % History Of Immunizations Not available. History of [...] Radiculitis Feb 2014 1:42PM Myofascial pain Feb 2 2014 1:42PM Post laminectomy syndrome Feb 2 [...] 2016 9:11AM Hyperlipidemia Feb 21 2016 9:11AM Payers Insurance Name Company Name Plan Name Plan Number Policy Number Policy Group Number Start Date [facility] - Community Plan [facility] Comm [id number] Sunday, 2013 [facility] Comm Plan of [id number] N/A History of Encounters Visit Date Visit Type Provider 01/25/2016 Office visit PAMELLA MURPHY DINING CAR SERVER 01/10/2016 Office visit PAMELLA MURPHY DINING CAR SERVER 12/07/2015 Office visit PAMELLA MURPHY DINING CAR SERVER 12/06/2015 Laboratory PAMELLA MURPHY DINING CAR SERVER 11/28/2015 Office visit PAMELLA MURPHY DINING CAR SERVER 11/21/2015 Office visit PAMELLA MURPHY DINING CAR SERVER 11/17/2015 Office visit Bhakti MERINO 11/14/2015 Office visit PAMELLA MURPHY DINING CAR SERVER 09/06/2015 Office visit PAMELLA MURPHY DINING CAR SERVER 08/29/2015 Voided PAMELLA MURPHY DINING CAR SERVER 01/31/2015 Office visit PAMELLA MURPHY DINING CAR SERVER 01/23/2015 Office visit PAMELLA MURPHY DINING CAR SERVER 01/19/2015 Office visit PAMELLA MURPHY DINING CAR SERVER 12/19/2014 Office visit PAMELLA MURPHY DINING CAR SERVER 11/18/2014 Office visit PAMELLA MURPHY DINING CAR SERVER 11/15/2014 Office visit PAMELLA MURPHY DINING CAR SERVER 11/05/2014 Jeffery Gtz MD 10/18/2014 Office visit PAMELLA MURPHY DINING CAR SERVER 09/26/2014 Office visit Adeel P. Hodgson MD 08/12/2014 Laboratory PAMELLA MURPHY DINING CAR SERVER 08/11/2014 Office visit PAMELLA MURPHY DINING CAR SERVER
--- OUTSIDE RECORDS SUMMARY | 2017-08-03 13:26 | XMS REPORT ---
Author Author PAMELLA MURPHY [facility] Address [address] [facility] [address] [place], [place] [id number] Care Team Providers Care Campaign Management Senior Manager Name Role Phone PAMELLA MURPHY PCP Unavailable Allergies and Adverse Reactions Name Reaction Notes Aspirin Plan of Treatment Planned Activity Comments Planned Date Planned Time Plan/Goal GLYCOSYLATED HEMOGLOBIN TEST 08/29/2015 12:00 AM LIPID PANEL 08/29/2015 12:00 AM THER/PROPH/DIAG INJ SC/IM 11/17/2015 12:00 AM GENERAL HEALTH PANEL 12/06/2015 12:00 AM X-RAY EXAM OF SHOULDER 01/25/2016 12:00 AM LIPID PANEL 03/19/2016 12:00 AM GLYCOSYLATED HEMOGLOBIN TEST 03/19/2016 12:00 AM GENERAL HEALTH PANEL 03/19/2016 12:00 AM Multiple drug screening detection 09/26/2014 [...] 31 miscellaneous needle 08/15/2014 use as directed [employer] Ultra System Kit miscellaneous kit 08/30/2014 use [...] Mini 31 gauge x 11/07" miscellaneous needle 03/04/2016 USE DIRECTED One Touch Test stips 03/18/2016 07/16/2016 Test Blood sugar TID PRN for Diabetes Type 2 Name Start Date Expiration Date SIG Comments [...] to exceed 30 mL in 24 hours [place] 7.5-325 mg oral tablet 11/17/2015 01/25/2016 take [...] Returned 11/17/2015 12:00 AM Rocephin 1 gram [facility]#[id number] Reviewed 12/06/2015 12:00 AM LIPID PANEL Returned [...] Feb 2014 1:42PM Cauda equina compression Feb 2 2014 1:42PM Drug abuse and dependence Feb 2 2014 1:42PM Chronic pain disorder b 2014 [...] 2016 8:19AM Hyperlipidemia Mar 19 2016 8:19AM Payers Insurance Name Company Name Plan Name Plan Number Policy Number Policy Group Number Start Date [facility] - Community Plan [facility] Comm [id number] Sunday, 2013 [facility] Comm Plan of [id number] N/A History of Encounters Visit Date Visit Type Provider 03/19/2016 Laboratory PAMELLA MURPHY CRIMINAL JUSTICE LAWYER 01/25/2016 Office visit PAMELLA MURPHY CRIMINAL JUSTICE LAWYER 01/10/2016 Office visit PAMELLA MURPHY CRIMINAL JUSTICE LAWYER 12/07/2015 Office visit PAMELLA MURPHY CRIMINAL JUSTICE LAWYER 12/06/2015 Laboratory PAMELLA MURPHY CRIMINAL JUSTICE LAWYER 11/28/2015 Office visit PAMELLA MURPHY CRIMINAL JUSTICE LAWYER 11/21/2015 Office visit PAMELLA MURPHY CRIMINAL JUSTICE LAWYER 11/17/2015 Office visit Bhakti MERINO 11/14/2015 Office visit PAMELLA MURPHY CRIMINAL JUSTICE LAWYER 09/06/2015 Office visit PAMELLA MURPHY CRIMINAL JUSTICE LAWYER 08/29/2015 Voided PAMELLA MURPHY CRIMINAL JUSTICE LAWYER 01/31/2015 Office visit PAMELLA MURPHY CRIMINAL JUSTICE LAWYER 01/23/2015 Office visit PAMELLA MURPHY CRIMINAL JUSTICE LAWYER 01/19/2015 Office visit PAMELLA MURPHY CRIMINAL JUSTICE LAWYER 12/19/2014 Office visit PAMELLA MURPHY CRIMINAL JUSTICE LAWYER 11/18/2014 Office visit PAMELLA MURPHY CRIMINAL JUSTICE LAWYER 11/15/2014 Office visit PAMELLA MURPHY CRIMINAL JUSTICE LAWYER 11/05/2014 Hospital Gil Gtz MD 10/18/2014 Office visit PAMELLA MURPHY CRIMINAL JUSTICE LAWYER 09/26/2014 Office visit Adeel Hodgson MD 08/12/2014 Laboratory PAMELLA MURPHY CRIMINAL JUSTICE LAWYER 08/11/2014 Office visit PAMELLA MURPHY CRIMINAL JUSTICE LAWYER
--- OUTSIDE RECORDS SUMMARY | 2017-08-03 13:27 | XMS REPORT ---
Author Author PAMELLA MURPHY Organization [facility] Address [address] [facility] [address] [place], [place] [address] Care Team Providers Care Hand Spring Repairer Name Role Phone PAMELLA MURPHY PCP Unavailable PAMELLA MURPHY PreferredProvider Unavailable Allergies and Adverse Reactions Name Reaction Notes Aspirin Plan of Treatment Planned Activity Comments Planned Date Planned Time Plan/Goal IM Injection 11/17/2015 12:00 AM Drug Screen - Non Medicare [...] 31 miscellaneous needle 08/15/2014 use as directed [employer] Ultra System Kit miscellaneous kit 08/30/2014 use [...] Pen Needle UF Mini 31 gauge x 3/16" miscellaneous needle 05/03/2015 USE DIRECTED Lancets,Ultra Thin [...] Pen Needle UF Mini 31 gauge x 3/16" miscellaneous needle 03/04/2016 USE DIRECTED metformin 500 [...] to exceed 30 mL in 24 hours [place] 7.5-325 mg oral tablet 11/17/2015 01/25/2016 take [...] GLYCOSYLATED HEMOGLOBIN TEST Reviewed 11/17/2015 12:00 AM Dustinephin 1 gram [facility]#[id number] Reviewed 12/06/2015 12:00 AM ROUTINE VENIPUNCTURE Reviewed [...] 12:00 AM COLLECTION VENOUS BLOOD VENIPUNCTURE Reviewed 11/05/2016 12:00 AM GENERAL HEALTH PANEL Returned 11/05/2016 12:00 AM LIPID PANEL Returned 11/05/2016 12:00 AM GLYCOSYLATED HEMOGLOBIN TEST Returned 08/12/2014 [...] Pneumococcal 05/29/2016 [employer] PFR Prevnar 13 [id number] Intramuscular Left Deltoid 05/29/2016 06/29/2015 133 History [...] 02 2016 8:30AM Atherosclerotic heart disease of [place] coronary artery without angina pectoris Aug 05 [...] Policy Number Policy Group Number Start Date [facility] Comm [id number] Sunday, [address] [facility] Comm Plan of [id number] N/A History of Encounters Visit Date Visit Type Provider 11/05/2016 Laboratory PAMELLA MURPHY BRYOLOGIST 08/05/2016 Office visit PAMELLA MURPHY BRYOLOGIST 07/02/2016 Laboratory PAMELLA MURPHY BRYOLOGIST 05/29/2016 Nurse visit PAMELLA MURPHY BRYOLOGIST 05/21/2016 Office visit PAMELLA MURPHY BRYOLOGIST 03/19/2016 Laboratory PAMELLA MURPHY BRYOLOGIST 01/25/2016 Office visit PAMELLA MURPHY BRYOLOGIST 01/10/2016 Office visit PAMELLA MURPHY BRYOLOGIST 12/07/2015 Office visit PAMELLA MURPHY BRYOLOGIST 12/06/2015 Laboratory PAMELLA MURPHY BRYOLOGIST 11/28/2015 Office visit PAMELLA MURPHY BRYOLOGIST 11/21/2015 Office visit PAMELLA MURPHY BRYOLOGIST 11/17/2015 Office visit Bhakti Ennis FLASH RANGING CREWMEMBER 11/14/2015 Office visit PAMELLA MURPHY BRYOLOGIST 09/06/2015 Office visit PAMELLA MURPHY BRYOLOGIST 08/29/2015 Voided PAMELLA MURPHY BRYOLOGIST 01/31/2015 Office visit PAMELLA MURPHY BRYOLOGIST 01/23/2015 Office visit PAMELLA MURPHY BRYOLOGIST 01/19/2015 Office visit PAMELLA MURPHY BRYOLOGIST 12/19/2014 Office visit PAMELLA MURPHY BRYOLOGIST 11/18/2014 Office visit PAMELLA MURPHY BRYOLOGIST 11/15/2014 Office visit PAMELLA MURPHY BRYOLOGIST 11/05/2014 Hospital Gil Gtz MD 10/18/2014 Office visit PAMELLA MURPHY BRYOLOGIST 09/26/2014 Office visit Adeel Hodgson MD 08/12/2014 Laboratory PAMELLA MURPHY BRYOLOGIST 08/11/2014 Office visit PAMELLA MURPHY BRYOLOGIST
--- OUTSIDE RECORDS SUMMARY | 2017-08-03 13:28 | XMS REPORT ---
Author Author PAMELLA MURPHY [facility] Address [address] [facility] [address] [place], [place] [id number] Care Team Providers Care Production Assembly Supervisor Name Role Phone PAMELLA MURPHY PCP [...] 31 miscellaneous needle 08/15/2014 use as directed [employer] Ultra System Kit miscellaneous kit 08/30/2014 use [...] x 16" miscellaneous needle 03/04/2016 USE DIRECTED One Touch Test stips 03/18/2016 07/16/2016 Test Blood sugar TID PRN for Diabetes Type 2 metformin 500 mg oral tablet extended release 24 hr 03/26/2016 TAKE 2 TABLETS BY MOUTH ONCE DAILY WITH EVENING MEAL FOR 7 DAYS THEN INCREASE TO 2 TABLETS TWICE DAILY WITH MEALS Name Start Date [...] to exceed 30 mL in 24 hours [place] 7.5-325 mg oral tablet 11/17/2015 01/25/2016 take [...] Returned 11/17/2015 12:00 AM Rocephin 1 gram [facility] [place] 2[place]#[id number] Reviewed 12/06/2015 12:00 AM LIPID PANEL Returned 12/06/2015 12:00 AM GLYCOSYLATED HEMOGLOBIN TEST Returned 03/19/2016 12:00 AM LIPID PANEL Returned 03/19/2016 12:00 AM GLYCOSYLATED HEMOGLOBIN TEST Returned 03/19/2016 12:00 AM GENERAL HEALTH PANEL Returned 08/12/2014 12:00 AM ROUTINE VENIPUNCTURE Reviewed [...] TSH 2.150 uIU/ mLHemoglobin A1c 8.60 % 03/19/2016 2:50 PM WBC 8.7 RBC 4.87 HGB 15.50 g/dLHCT 45.60 %MCV 94.0 fLMCH 31.80 pgMCHC 34.0 g/dLRDW CV 11.90 %MPV 10.50 fLPLT 190 %NEUT 44.90 %%LYMP 46.0 %%MONO 5.70 %%EOS 2.70 %%BASO 0.60 %#NEUT 3.90 #LYMP 3.98 #MONO 0.49 #EOS 0.23 # BASO 0.05 TSH 2.690 uIU/mLHGB A1C 7.0 %Est Avg Glucose 154.2 mg/dLTRIGLYCERIDES 66.0 mg/dLCHOLESTEROL 131.0 mg/dLHDL 37.0 mg/dLLDL (CALC) 81.0 mg/dLGLUCOSE 100.0 mg/dLSODIUM 139.0 mmol/LPOTASSIUM 4.50 mmol/LCHLORIDE 104.0 mmol/LCO2 26.0 mmol/LBUN 21.0 mg/dLCREATININE 0.80 mg/dLSGOT/AST 27.0 IU/LSGPT/ALT 45.0 IU /LALK PHOS 51.0 IU/LTOTAL PROTEIN 6.30 g/dLALBUMIN 4.20 g/dLTOTAL BILI 0.40 mg/ dLCALCIUM 9.50 mg/dLeGFR >60 mL/min/1.73m History Of Immunizations Not available. History of [...] Feb 2014 1:42PM Drug abuse and dependence Sep 26 2014 1:42PM Chronic pain disorder b 2014 [...] Policy Number Policy Group Number Start Date [facility] - RHC - Community Plan [facility] RHC Comm [id number] Sunday, 2013 [facility] Comm Plan of [id number] N/A History of Encounters Visit Date Visit Type Provider 03/19/2016 Laboratory PAMELLA MURPHY LACING STRING CUTTER 01/25/2016 Office visit PAMELLA MURPHY LACING STRING CUTTER 01/10/2016 Office visit PAMELLA MURPHY LACING STRING CUTTER 12/07/2015 Office visit PAMELLA MURPHY LACING STRING CUTTER 12/06/2015 Laboratory PAMELLA MURPHY LACING STRING CUTTER 11/28/2015 Office visit PAMELLA MURPHY LACING STRING CUTTER 11/21/2015 Office visit PAMELLA MURPHY LACING STRING CUTTER 11/17/2015 Office visit Bhakti MERINO 11/14/2015 Office visit PAMELLA MURPHY LACING STRING CUTTER 09/06/2015 Office visit PAMELLA MURPHY LACING STRING CUTTER 08/29/2015 Voided PAMELLA MURPHY LACING STRING CUTTER 01/31/2015 Office visit PAMELLA MURPHY LACING STRING CUTTER 01/23/2015 Office visit PAMELLA MURPHY LACING STRING CUTTER 01/19/2015 Office visit PAMELLA MURPHY LACING STRING CUTTER 12/19/2014 Office visit PAMELLA MURPHY LACING STRING CUTTER 11/18/2014 Office visit PAMELLA MURPHY LACING STRING CUTTER 11/15/2014 Office visit PAMELLA MURPHY LACING STRING CUTTER 11/05/2014 Hospital Gil Gtz MD 10/18/2014 Office visit PAMELLA MURPHY LACING STRING CUTTER 09/26/2014 Office visit Adeel Hodgson MD 08/12/2014 Laboratory PAMELLA MURPHY LACING STRING CUTTER 08/11/2014 Office visit PAMELLA MURPHY LACING STRING CUTTER
--- OUTSIDE RECORDS SUMMARY | 2017-08-03 13:28 | XMS REPORT ---
Author Author PAMELLA MURPHY [facility] Address [address] [facility] [address] [place], [place] [id number] Care Team Providers Care Wringer And Setter Name Role Phone PAMELLA MURPHY PCP Unavailable [...] 31 miscellaneous needle 08/15/2014 use as directed [employer] Ultra System Kit miscellaneous kit 08/30/2014 use [...] to exceed 30 mL in 24 hours [place] 7.5-325 mg oral tablet 11/17/2015 01/25/2016 take [...] Returned 11/17/2015 12:00 AM Rocephin 1 gram [facility]#[id number] Reviewed 12/06/2015 12:00 AM LIPID PANEL Returned [...] Policy Number Policy Group Number Start Date [facility] - RHC - Community Plan [facility] RHC Comm [id number] Sunday, 2013 [facility] Comm Plan of [id number] N/A History of Encounters Visit Date Visit Type Provider 03/19/2016 Laboratory PAMELLA MURPHY PRE KINDERGARTEN TEACHER 01/25/2016 Office visit PAMELLA MURPHY PRE KINDERGARTEN TEACHER 01/10/2016 Office visit PAMELLA MURPHY PRE KINDERGARTEN TEACHER 12/07/2015 Office visit PAMELLA MURPHY PRE KINDERGARTEN TEACHER 12/06/2015 Laboratory PAMELLA MURPHY PRE KINDERGARTEN TEACHER 11/28/2015 Office visit PAMELLA MURPHY PRE KINDERGARTEN TEACHER 11/21/2015 Office visit PAMELLA MURPHY PRE KINDERGARTEN TEACHER 11/17/2015 Office visit Bhakti MERINO 11/14/2015 Office visit PAMELLA MURPHY PRE KINDERGARTEN TEACHER 09/06/2015 Office visit PAMELLA MURPHY PRE KINDERGARTEN TEACHER 08/29/2015 Voided PAMELLA MURPHY PRE KINDERGARTEN TEACHER 01/31/2015 Office visit PAMELLA MURPHY PRE KINDERGARTEN TEACHER 01/23/2015 Office visit PAMELLA MURPHY PRE KINDERGARTEN TEACHER 01/19/2015 Office visit PAMELLA MURPHY PRE KINDERGARTEN TEACHER 12/19/2014 Office visit PAMELLA MURPHY PRE KINDERGARTEN TEACHER 11/18/2014 Office visit PAMELLA MURPHY PRE KINDERGARTEN TEACHER 11/15/2014 Office visit PAMELLA MURPHY PRE KINDERGARTEN TEACHER 11/05/2014 Hospital Gil Gtz MD 10/18/2014 Office visit PAMELLA MURPHY PRE KINDERGARTEN TEACHER 09/26/2014 Office visit Adeel oHdgson MD 08/12/2014 Laboratory PAMELLA MURPHY PRE KINDERGARTEN TEACHER 08/11/2014 Office visit PAMELLA MURPHY PRE KINDERGARTEN TEACHER
--- OUTSIDE RECORDS SUMMARY | 2017-08-03 13:29 | XMS REPORT ---
Author Author PAMELLA MURPHY Organization [facility] Address [address] [facility] [address] [place], [place] [id number] Care Team Providers Care Hydrogen Treater Name Role Phone PAMELLA MURPHY PCP Unavailable [...] 31 miscellaneous needle 08/15/2014 use as directed [employer] Ultra System Kit miscellaneous kit 08/30/2014 use [...] PUFFS BY MOUTH EVERY 4 HOURS NEEDED glimepiride 2 mg oral tablet 02/08/2016 09/05/2016 take 2 tablets (4 mg) by oral route once daily for 30 days metformin 500 mg oral tablet extended release 24 hr 02/28/2016 TAKE 2 TABLETS BY MOUTH ONCE DAILY WITH EVENING MEAL FOR 7 DAYS THEN INCREASE TO 2 TABLETS TWICE DAILY WITH MEALS BD Insulin Pen Needle UF Mini 31 gauge x 316" miscellaneous needle 03/04/2016 USE DIRECTED metformin 500 [...] oral route once daily for 30 days Name Start Date Expiration [...] oral route every 6 hours as needed One Touch Test stips 03/18/2016 07/16/2016 Test [...] to exceed 30 mL in 24 hours [place] 7.5-325 mg oral tablet 11/17/2015 01/25/2016 take [...] Reviewed 11/17/2015 12:00 AM Rocephin 1 gram [facility]#[id number] Reviewed 12/06/2015 12:00 AM ROUTINE VENIPUNCTURE Reviewed [...] Returned 07/02/2016 12:00 AM LIPID PANEL Returned 08/12/2014 12:00 AM ROUTINE VENIPUNCTURE [...] Pneumococcal 05/29/2016 [employer] PFR Prevnar 13 [id number] Intramuscular Left Deltoid 05/29/2016 06/29/2015 133 History [...] disc Aug 11 2014 10:41AM Lumbar Radiculitis b 2014 1:42PM Myofascial pain b 2014 1:42PM Post laminectomy syndrome Feb 2 2015 1:42PM Cauda equina compression Sep 26 2014 [...] 02 2016 8:30AM Atherosclerotic heart disease of [place] coronary artery without angina pectoris Aug 05 2016 9:45AM Coronary atherosclerosis due to lipid rich plaque Aug 05 2016 9:45AM Degeneration of lumbar intervertebral disc Aug 05 2016 9:45AM Hypertension Aug 05 2016 9:45AM Lumbago Aug 05 2016 9:45AM Type 2 diabetes mellitus Aug 05 2016 9:45AM Hyperlipidemia Aug 05 2016 9:45AM Biceps tendinitis of right upper extremity Aug 05 2016 9:45AM Payers Insurance Name Company Name Plan Name Plan Number Policy Number Policy Group Number Start Date [facility] - Community [facility] Comm [id number] Sunday, 2013 [facility] Comm Plan of [id number] N/A History of Encounters Visit Date Visit Type Provider 08/05/2016 Office visit PAMELLA MURPHY VICE PRESIDENT OF PROCUREMENT 07/02/2016 Laboratory PAMELLA MURPHY VICE PRESIDENT OF PROCUREMENT 05/29/2016 Nurse visit PAMELLA MURPHY VICE PRESIDENT OF PROCUREMENT 05/21/2016 Office visit PAMELLA MURPHY VICE PRESIDENT OF PROCUREMENT 03/19/2016 Laboratory PAMELLA MURPHY VICE PRESIDENT OF PROCUREMENT 01/25/2016 Office visit PAMELLA MURPHY VICE PRESIDENT OF PROCUREMENT 01/10/2016 Office visit PAMELLA MURPHY VICE PRESIDENT OF PROCUREMENT 12/07/2015 Office visit PAMELLA MURPHY VICE PRESIDENT OF PROCUREMENT 12/06/2015 Laboratory PAMELLA MURPHY VICE PRESIDENT OF PROCUREMENT 11/28/2015 Office visit PAMELLA MURPHY VICE PRESIDENT OF PROCUREMENT 11/21/2015 Office visit PAMELLA MURPHY VICE PRESIDENT OF PROCUREMENT 11/17/2015 Office visit Bhakti MERINO 11/14/2015 Office visit PAMELLA MURPHY VICE PRESIDENT OF PROCUREMENT 09/06/2015 Office visit PAMELLA MURPHY VICE PRESIDENT OF PROCUREMENT 08/29/2015 Voided PAMELLA MURPHY VICE PRESIDENT OF PROCUREMENT 01/31/2015 Office visit PAMELLA MURPHY VICE PRESIDENT OF PROCUREMENT 01/23/2015 Office visit PAMELLA MURPHY VICE PRESIDENT OF PROCUREMENT 01/19/2015 Office visit PAMELLA MURPHY VICE PRESIDENT OF PROCUREMENT 12/19/2014 Office visit PAMELLA MURPHY VICE PRESIDENT OF PROCUREMENT 11/18/2014 Office visit PAMELLA MURPHY VICE PRESIDENT OF PROCUREMENT 11/15/2014 Office visit PAMELLA MURPHY VICE PRESIDENT OF PROCUREMENT 11/05/2014 Hospital Gil Gtz MD 10/18/2014 Office visit PAMELLA MURPHY VICE PRESIDENT OF PROCUREMENT 09/26/2014 Office visit Adeel Hodgson MD 08/12/2014 Laboratory PAMELLA MURPHY VICE PRESIDENT OF PROCUREMENT 08/11/2014 Office visit PAMELLA MURPHY VICE PRESIDENT OF PROCUREMENT
--- OUTSIDE RECORDS SUMMARY | 2017-08-03 13:30 | XMS REPORT ---
Author Author PAMELLA MURPHY [facility] Address [address] [facility] [place], [place] [phone] Care Team Providers Care Business Process Consultant Name Role Phone PAMELLA MURPHY PCP Unavailable Allergies and Adverse Reactions Name Reaction Notes Aspirin Plan of Treatment Planned Activity Comments Planned Date Planned Time Plan/Goal Multiple drug screening detection 09/26/2014 12:00 AM Urine drug screen (amphetamine, barbiturate, cocaine, opiates, PCP, methaqualone, benzodiazepine) 09/26/2014 12:00 AM Medications Active Name Start Date Estimated Completion Date SIG Comments clopidogrel oral tablet 75 mg take 1 tablet (75 mg) by oral route once daily Aspir-81 oral tablet,delayed release (DR/EC) 81 mg take 1 tablet (81 mg ) by oral route once daily pravastatin oral tablet 40 mg take 1 tablet (40 mg) by oral route once daily at bedtime metformin oral tablet extended release 24 hr 500 mg 08/15/2014 take 2 tablets (1,000 mg) by oral route once daily with the evening meal for a week then increase to 2 tabs BID with meals Lantus Solostar subcutaneous insulin pen 100 unit/mL (3 mL) 08/15/2014 inject by subcutaneous route 10U at HS Insulin Pen Needle miscellaneous needle 31 08/15/2014 use as directed One Touch Ultra System Kit miscellaneous kit 08/30/2014 use as directed Test Blood Sugar BID hydrocodone-ibuprofen oral tablet 7.5-200 mg 11/18/2014 take 1 tablet by oral route 3 times a day as needed glimepiride oral tablet 2 mg 11/18/2014 take 1 tablet (2 mg) by oral route once daily One Touch Test stips 12/20/2014 04/19/2015 Test Blood sugar TID PRN for Diabetes Type 2 Lantus Solostar subcutaneous insulin pen 100 unit/mL (3 mL) 12/27/2014 INJECT 10 UNITS SUBCUTANEOUSLY DAILY AT BEDTIME triamcinolone acetonide topical ointment 0.5 % 01/23/2015 apply a thin layer to the affected area(s) by topical route 3 times per day Name Start Date Expiration Date SIG Comments carvedilol oral tablet 6.25 mg take 1 tablet (6.25 mg) by oral route 2 times per day with food enalapril maleate oral tablet 5 mg take 1 tablet (5 mg) by oral route once daily Anaprox DS oral tablet 550 mg 08/15/2014 take 1 tablet (550 mg) by oral route every 12 hours as needed cyclobenzaprine oral tablet 10 mg 08/15/2014 take 1 tablet by oral route 3 times a day As Needed Medrol (Zach) oral tablets,dose pack 4 mg 09/26/2014 take as directed Discontinued Name Start Date Discontinued Date SIG Comments metformin oral tablet 500 mg 08/15/2014 take 1 tablet (500 mg) by oral route 2 times per day with morning and evening meals glipizide oral tablet 10 mg 08/15/2014 take 1 tablet (10 mg) by oral route 2 times per day before meals ran out, no coverage Glucometer II 08/15/2014 08/30/2014 Glucometer, pharmacists choice meter and strips DX 250, to test BID Contour Test Strips miscellaneous strip 08/23/2014 08/30/2014 use as directed Neurontin oral capsule 300 mg 09/26/2014 01/19/2015 take 1 capsule (300 mg) by oral route 3 times per day for 30 days pt states it didnt work Problem List Description Status Onset Diabetes Mellitus, Type II, Uncontrolled Active Anemia Active Hyperlipidemia Active Degeneration of lumbar intervertebral disc Active 08/29/2014 Lumbago Active 08/29/2014 Hypertension Active 10/19/2014 Vital Signs Date Time BP-Sys(mm[Hg] BP-Rebecca(mm[Hg]) HR(bpm) RR(rpm) Temp WT HT HC BMI BSA BMI Percentile O2 Sat(%) 01/23/2015 10:26:00 AM 144 mmHg 80 mmHg 90 bpm 18 rpm 96.8 F 191.25 lbs 100 % 01/19/2015 10:45:00 AM 146 mmHg 86 mmHg 81 bpm 18 rpm 97.4 F 192 lbs 67 in 30.0711 kg/m 2.029 m 100 % 12/19/2014 10:33:00 AM 140 mmHg 88 mmHg 98 bpm 18 rpm 96.9 F 183 lbs 67 in .66 kg/m2 1.98 m2 100 % 11/18/2014 10:37:00 [...] of Procedures Date Ordered Description Order Status 08/12/2014 12:00 AM ROUTINE VENIPUNCTURE Reviewed 08/12/2014 [...] mg/dLeGFR 60 TSH 0.820 uIU/mLHGB A1C 12.10 % 11/15/2014 2:46 PM GLUCOSE 217.0 mg/dLSODIUM 140.0 mmol/LPOTASSIUM 4.20 mmol/ LCHLORIDE 105.0 mmol/LCO2 25.0 mmol/LBUN 16.0 mg/dLCREATININE 0.90 mg/dLSGOT/ AST 19.0 IU/LSGPT/ALT 38.0 IU/LALK PHOS 46.0 IU/LTOTAL PROTEIN 6.80 g/dLALBUMIN 4.50 g/dLTOTAL BILI 0.60 mg/dLCALCIUM 9.80 mg/dLeGFR >60 mL/min/1.73 m2HGB A1C 9.80 % History Of Immunizations Not available. History of Past Illness Name Date of Onset Comments Anemia ITP Diabetes Mellitus, Type II, Uncontrolled Hyperlipidemia Degeneration of lumbar intervertebral disc 08/29/2014 Lumbago 08/29/2014 Hypertension 10/19/2014 Hypertension Aug 12 2014 9:44AM Diabetes Mellitus, [...] syndrome Feb 2014 1:42PM Cauda equina compression b 2014 1:42PM Drug abuse and dependence b [...] 10:48AM Poison sumac Jan 23 2015 10:28AM Payers Insurance Name Company Name Plan Name Plan Number Policy Number Policy Group Number Start Date [facility] - RHC - Community Plan [facility] RHC Comm [id number] Sunday, 2013 [facility] Comm Plan of [id number] N/A History of Encounters Visit Date Visit Type Provider 01/23/2015 Office visit PAMELLA MURPHY LEAD SUSTAINABILITY SPECIALIST 01/19/2015 Office visit PAMELLA MURPHY LEAD SUSTAINABILITY SPECIALIST 12/19/2014 Office visit PAMELLA MURPHY LEAD SUSTAINABILITY SPECIALIST 11/18/2014 Office visit PAMELLA MURPHY LEAD SUSTAINABILITY SPECIALIST 11/15/2014 Office visit PAMELLA MURPHY LEAD SUSTAINABILITY SPECIALIST 10/18/2014 Office visit PAMELLA MURPHY LEAD SUSTAINABILITY SPECIALIST 09/26/2014 Office visit Adeel Hodgson MD 08/12/2014 Laboratory PAMELLA MURPHY LEAD SUSTAINABILITY SPECIALIST 08/11/2014 Office visit PAMELLA MURPHY LEAD SUSTAINABILITY SPECIALIST
--- OUTSIDE RECORDS SUMMARY | 2017-08-03 13:30 | XMS REPORT ---
Author Author PAMELLA MURPHY [facility] Address [address] [facility] [address] [place], [place] [phone] Care Team Providers Care Speech Language Therapist Name Role Phone PAMELLA MURPHY PCP Unavailable [...] Policy Number Policy Group Number Start Date [facility] - RHC - Community Plan [facility] RHC Comm [id number] Sunday, 2013 [facility] Comm Plan of [id number] N/A History of Encounters Visit Date Visit Type Provider 01/23/2015 Office visit APMELLA MURPHY LANGUAGE ASSISTANT 01/19/2015 Office visit PAMELLA MURPHY LANGUAGE ASSISTANT 12/19/2014 Office visit PAMELLA MURPHY LANGUAGE ASSISTANT 11/18/2014 Office visit PAMELLA MURPHY LANGUAGE ASSISTANT 11/15/2014 Office visit PAMELLA MURPHY LANGUAGE ASSISTANT 10/18/2014 Office visit PAMELLA MURPHY LANGUAGE ASSISTANT 09/26/2014 Office visit Adeel Hodgson MD 08/12/2014 Laboratory PAMELLA MURPHY LANGUAGE ASSISTANT 08/11/2014 Office visit PAMELLA MURPHY LANGUAGE ASSISTANT
--- OUTSIDE RECORDS SUMMARY | 2017-08-03 13:30 | XMS REPORT ---
Author Author PAMELLA MURPHY [facility] Address [address] [facility] [address] [place], [place] [phone] Care Team Providers Care Harness Cutter Name Role Phone PAMELLA MURPHY PCP Unavailable [...] 31 miscellaneous needle 08/15/2014 use as directed [employer] Ultra System Kit miscellaneous kit 08/30/2014 use [...] inhalation route every 4 hours as needed [place] 7.5-325 mg oral tablet 11/17/2015 take 1 tablet by oral route every 4 -6 hours as needed for pain glimepiride 2 mg oral tablet 11/28/2015 take 2 tablets (4 mg) by oral route once daily metformin [...] Returned 11/17/2015 12:00 AM Rocephin 1 gram [facility]#[id number] Reviewed 12/06/2015 12:00 AM LIPID PANEL Returned [...] Group Number Start Date [facility] - [facility] - Community [facility] Comm [id number] Sunday, 2013 [facility] Comm Plan of [id number] N/A History of Encounters Visit Date Visit Type Provider 01/10/2016 Office visit PAMELLA MURPHY INNER TUBE CUTTER 12/07/2015 Office visit PAMELLA MURPHY INNER TUBE CUTTER 12/06/2015 Laboratory PAMELLA MURPHY INNER TUBE CUTTER 11/28/2015 Office visit PAMELLA MURPHY INNER TUBE CUTTER 11/21/2015 Office visit PAMELLA MURPHY INNER TUBE CUTTER 11/17/2015 Office visit Bhakti MERINO 11/14/2015 Office visit PAMELLA MURPHY INNER TUBE CUTTER 09/06/2015 Office visit PAMELLA MURPHY INNER TUBE CUTTER 08/29/2015 Voided PAMELLA MURPHY INNER TUBE CUTTER 01/31/2015 Office visit PAMELLA MURPHY INNER TUBE CUTTER 01/23/2015 Office visit PAMELLA MURPHY INNER TUBE CUTTER 01/19/2015 Office visit PAMELLA MURPHY INNER TUBE CUTTER 12/19/2014 Office visit PAMELLA MURPHY INNER TUBE CUTTER 11/18/2014 Office visit PAMELLA MURPHY INNER TUBE CUTTER 11/15/2014 Office visit PAMELLA MURPHY INNER TUBE CUTTER 11/05/2014 Hospital Gil Gtz MD 10/18/2014 Office visit PAMELLA MURPHY INNER TUBE CUTTER 09/26/2014 Office visit Adeel Hodgson MD 08/12/2014 Laboratory PAMELLA MURPHY INNER TUBE CUTTER 08/11/2014 Office visit PAMELLA MURPHY INNER TUBE CUTTER
--- OUTSIDE RECORDS SUMMARY | 2017-08-03 13:31 | XMS REPORT ---
Author Author PAMELLA MURPHY [facility] Address [address] [facility] [address] [place], [place] [address] Care Team Providers Care Outside Sales Name Role Phone PAMELLA MURPHY PCP Unavailable Allergies and Adverse Reactions Name Reaction Notes Aspirin Plan of Treatment Planned Activity Comments Planned Date Planned Time Plan/Goal THER/PROPH/DIAG INJ SC/IM 11/17/2015 12:00 AM IMMUNIZATION ADMIN 05/29/2016 12:00 AM PNEUMOCOCCAL VACC 13 JOSE IM 05/29/2016 12:00 AM Multiple drug screening detection 09/26/2014 [...] 31 miscellaneous needle 08/15/2014 use as directed OneTouch Ultra System Kit miscellaneous kit 08/30/2014 use [...] x 316" miscellaneous needle 03/04/2016 USE DIRECTED One Touch [...] every 6 hours as needed for pain Name Start Date Expiration Date SIG Comments [...] oral route every 6 hours as needed Discontinued Name Start Date Discontinued Date SIG [...] to exceed 30 mL in 24 hours [place] 7.5-325 mg oral tablet 11/17/2015 01/25/2016 take [...] HC BMI BSA BMI Percentile O2 Sat(%) 05/21/2016 10:35:00 AM 152 mmHg 80 mmHg 76 bpm 18 rpm 96.5 F 202 lbs 67 in 31.64 kg/m2 2.08 m2 97 % 01/25/2016 10:14:00 AM 140 mmHg 80 mmHg 85 bpm 16 rpm 96.5 F 192.5 lbs 67 in 30.1495 kg/m 2.0317 m 97 % 01/10/2016 10:29:00 AM 112 mmHg 80 mmHg 67 bpm 18 rpm 96.5 F 198 lbs 67 in 31.01 kg/m2 2.06 m2 99 % 12/07/2015 3:07:00 PM 130 mmHg 70 mmHg 76 bpm 11/28/2015 10:41:00 AM 142 mmHg 88 mmHg 70 bpm 16 rpm 96.8 F 199 lbs 67 in 31.1675 kg/m 2.07 m2 97 % 11/21/2015 10:42:00 AM [...] Reviewed 08/29/2015 12:00 AM GLYCOSYLATED HEMOGLOBIN TEST Returned 11/17/2015 12:00 AM Janine 1 gram [facility]#[id number] Reviewed 12/06/2015 12:00 AM ROUTINE VENIPUNCTURE Reviewed [...] 0.70 mg/dLCALCIUM 9.90 mg/dLeGFR 60 TSH 0.820 uIU/mLEst Avg Glucose 300.6 mg/dL 11/15/2014 2:46 PM GLUCOSE 217.0 mg/dLSODIUM 140.0 mmol/LPOTASSIUM 4.20 mmol/ LCHLORIDE 105.0 mmol/LCO2 25.0 mmol/LBUN 16.0 mg/dLCREATININE 0.90 mg/dLSGOT/ AST 19.0 IU/LSGPT/ALT 38.0 IU/LALK PHOS 46.0 IU/LTOTAL PROTEIN 6.80 g/dLALBUMIN 4.50 g/dLTOTAL BILI 0.60 mg/dLCALCIUM 9.80 mg/dLeGFR >60 mL/min/1.73 m2Est Avg Glucose 234.6 mg/dL 08/29/2015 4:06 PM PSA TOTAL 0.710 ng/mLTRIGLYCERIDES 122.0 mg/dLCHOLESTEROL 152.0 mg/dLHDL 34.0 mg/dLLDL (CALC) [...] #EOS 0.18 #BASO 0.06 TSH 2.150 uIU/ mL 03/19/2016 2:50 PM WBC 8.7 RBC 4.87 HGB 15.50 g/dLHCT 45.60 %MCV 94.0 fLMCH 31.80 pgMCHC 34.0 g/dLRDW CV 11.90 %MPV 10.50 fLPLT 190 %NEUT 44.90 %%LYMP 46.0 %%MONO 5.70 %%EOS 2.70 %%BASO 0.60 %#NEUT 3.90 #LYMP 3.98 #MONO 0.49 #EOS 0.23 # BASO 0.05 TSH 2.690 uIU/mLEst Avg Glucose 154.2 mg/dLTRIGLYCERIDES 66.0 mg/ dLCHOLESTEROL 131.0 mg/dLHDL 37.0 mg/dLLDL (CALC) 81.0 mg/dLGLUCOSE 100.0 mg/ dLSODIUM 139.0 mmol/LPOTASSIUM 4.50 mmol/LCHLORIDE 104.0 mmol/LCO2 26.0 mmol/ LBUN 21.0 mg/dLCREATININE 0.80 mg/dLSGOT/AST 27.0 IU/LSGPT/ALT 45.0 IU/LALK PHOS 51.0 IU/LTOTAL PROTEIN 6.30 g/dLALBUMIN 4.20 g/dLTOTAL BILI 0.40 mg/ dLCALCIUM 9.50 mg/dLeGFR >60 mL/min/1.73m History Of Immunizations Name Date Admin Mfg Name Mfg Code Trade Name Lot# Route Inj Vis Given Vis Pub CVX PCV 05/29/2016 [employer] PFR Prevnar 13 [id number] Intramuscular Left Deltoid 05/29/2016 06/29/2015 133 History [...] Feb 2014 1:42PM Drug abuse and dependence Feb 2 2014 1:42PM Chronic pain disorder Feb 2014 2:55PM Degeneration of lumbar intervertebral disc [...] 10:40AM Pneumonia vaccine May 29 2016 4:52PM Payers Insurance Name Company Name Plan Name Plan Number Policy Number Policy Group Number Start Date [facility] - [facility] - Community [facility] Comm [id number] Sunday, 2013 [facility] Comm Plan of [id number] N/A History of Encounters Visit Date Visit Type Provider 05/29/2016 Nurse visit PAMELLA MURPHY CENTRAL SUPPLY MANAGER 05/21/2016 Office visit PAMELLA MURPHY CENTRAL SUPPLY MANAGER 03/19/2016 Laboratory PAMELLA MURPHY CENTRAL SUPPLY MANAGER 01/25/2016 Office visit PAMELLA MURPHY CENTRAL SUPPLY MANAGER 01/10/2016 Office visit PAMELLA MURPHY CENTRAL SUPPLY MANAGER 12/07/2015 Office visit PAMELLA MURPHY CENTRAL SUPPLY MANAGER 12/06/2015 Laboratory PAMELLA MURPHY CENTRAL SUPPLY MANAGER 11/28/2015 Office visit PAMELLA MURPHY CENTRAL SUPPLY MANAGER 11/21/2015 Office visit PAMELLA MURPHY CENTRAL SUPPLY MANAGER 11/17/2015 Office visit Bhakti MERINO 11/14/2015 Office visit PAMELLA MURPHY CENTRAL SUPPLY MANAGER 09/06/2015 Office visit PAMELLA MURPHY CENTRAL SUPPLY MANAGER 08/29/2015 Voided PAMELLA MURPHY CENTRAL SUPPLY MANAGER 01/31/2015 Office visit PAMELLA MURPHY CENTRAL SUPPLY MANAGER 01/23/2015 Office visit PAMELLA MURPHY CENTRAL SUPPLY MANAGER 01/19/2015 Office visit PAMELLA MUPRHY CENTRAL SUPPLY MANAGER 12/19/2014 Office visit PAMELLA MURPHY CENTRAL SUPPLY MANAGER 11/18/2014 Office visit PAMELLA MURPHY CENTRAL SUPPLY MANAGER 11/15/2014 Office visit PAMELLA MURPHY CENTRAL SUPPLY MANAGER 11/05/2014 Hospital Gil Gtz MD 10/18/2014 Office visit PAMELLA MURPHY CENTRAL SUPPLY MANAGER 09/26/2014 Office visit Adeel Hodgson MD 08/12/2014 Laboratory PAMELLA MURPHY CENTRAL SUPPLY MANAGER 08/11/2014 Office visit PAMELLA MURPHY CENTRAL SUPPLY MANAGER
--- OUTSIDE RECORDS SUMMARY | 2017-08-03 13:32 | XMS REPORT ---
Author Author PAMELLA MURPHY [facility] Address [address] [facility] [address] [place], [place] [id number] Care Team Providers Care Test Engineering Technician Name Role Phone PAMELLA MURPHY PCP Unavailable [...] to exceed 30 mL in 24 hours [place] 7.5-325 mg oral tablet 11/17/2015 01/25/2016 take [...] Returned 11/17/2015 12:00 AM Janine 1 gram [facility]#[id number] Reviewed 12/06/2015 12:00 AM ROUTINE VENIPUNCTURE Reviewed [...] Vis Given Vis Pub CVX PCV 05/29/2016 [employer] PFR Prevnar 13 [id number] Intramuscular Left Deltoid 05/29/2016 06/29/2015 133 History [...] Policy Number Policy Group Number Start Date [facility] - Community [facility] Comm [id number] Sunday, 2013 [facility] Comm Plan of [id number] N/A History of Encounters Visit Date Visit Type Provider 05/29/2016 Nurse visit PAMELLA MURPHY BINDING BENCH WORKER 05/21/2016 Office visit PAMELLA MURPHY BINDING BENCH WORKER 03/19/2016 Laboratory PAMELLA MURPHY BINDING BENCH WORKER 01/25/2016 Office visit PAMELLA MURPHY BINDING BENCH WORKER 01/10/2016 Office visit PAMELLA MURPHY BINDING BENCH WORKER 12/07/2015 Office visit PAMELLA MURPHY BINDING BENCH WORKER 12/06/2015 Laboratory PAMELLA MURPHY BINDING BENCH WORKER 11/28/2015 Office visit PAMELLA MURPHY BINDING BENCH WORKER 11/21/2015 Office visit PAMELLA MURPHY BINDING BENCH WORKER 11/17/2015 Office visit Bhakti MERINO 11/14/2015 Office visit PAMELLA MURPHY BINDING BENCH WORKER 09/06/2015 Office visit PAMELLA MURPHY BINDING BENCH WORKER 08/29/2015 Voided PAMELLA MURPHY BINDING BENCH WORKER 01/31/2015 Office visit PAMELLA MURPHY BINDING BENCH WORKER 01/23/2015 Office visit PAMELLA MURPHY BINDING BENCH WORKER 01/19/2015 Office visit PAMELLA MURPHY BINDING BENCH WORKER 12/19/2014 Office visit PAMELLA MURPHY BINDING BENCH WORKER 11/18/2014 Office visit PAMELLA MURPHY BINDING BENCH WORKER 11/15/2014 Office visit PAMELLA MURPHY BINDING BENCH WORKER 11/05/2014 Hospital Gil Gtz MD 10/18/2014 Office visit PAMELLA MURPHY BINDING BENCH WORKER 09/26/2014 Office visit Adeel Hodgson MD 08/12/2014 Laboratory PAMELLA MURPHY BINDING BENCH WORKER 08/11/2014 Office visit PAMELLA MURPHY BINDING BENCH WORKER
--- OUTSIDE RECORDS SUMMARY | 2017-08-03 13:33 | XMS REPORT ---
Author Author PAMELLA MURPHY [facility] Address [address] [facility] [address] [place], [place] [id number] Care Team Providers Care Clay Structure Builder And Servicer Name Role Phone PAMELLA MURPHY PCP Unavailable [...] 31 miscellaneous needle 08/15/2014 use as directed [employer] Ultra System Kit miscellaneous kit 08/30/2014 use [...] inhalation route every 4 hours as needed [place] 7.5-325 mg oral tablet 11/17/2015 take 1 [...] Returned 11/17/2015 12:00 AM Rocephin 1 gram [facility]#3548-4359-49 Reviewed 12/06/2015 12:00 AM LIPID PANEL Returned [...] Policy Number Policy Group Number Start Date [facility] - [facility] - Community [facility] Comm [id number] Sunday, [address] [facility] Comm Plan of [id number] N/A History of Encounters Visit Date Visit Type Provider 01/10/2016 Office visit PAMELLA MURPHY MEDICAL RECORDS TECHNICIAN 12/07/2015 Office visit PAMELLA MURPHY MEDICAL RECORDS TECHNICIAN 12/06/2015 Laboratory PAMELLA MURPHY MEDICAL RECORDS TECHNICIAN 11/28/2015 Office visit PAMELLA MURPHY MEDICAL RECORDS TECHNICIAN 11/21/2015 Office visit PAMELLA MURPHY MEDICAL RECORDS TECHNICIAN 11/17/2015 Office visit Bhakti MERINO 11/14/2015 Office visit PAMELLA MURPHY MEDICAL RECORDS TECHNICIAN 09/06/2015 Office visit PAMELLA MURPHY MEDICAL RECORDS TECHNICIAN 08/29/2015 Voided PAMELLA MURPHY MEDICAL RECORDS TECHNICIAN 01/31/2015 Office visit PAMELLA MURPHY MEDICAL RECORDS TECHNICIAN 01/23/2015 Office visit PAMELLA MURPHY MEDICAL RECORDS TECHNICIAN 01/19/2015 Office visit PAMELLA MURPHY MEDICAL RECORDS TECHNICIAN 12/19/2014 Office visit PAMELLA MURPHY MEDICAL RECORDS TECHNICIAN 11/18/2014 Office visit PAMELLA MURPHY MEDICAL RECORDS TECHNICIAN 11/15/2014 Office visit PAMELLA MURPHY MEDICAL RECORDS TECHNICIAN 11/05/2014 Hospital Gil Gtz MD 10/18/2014 Office visit PAMELLA MURPHY MEDICAL RECORDS TECHNICIAN 09/26/2014 Office visit Adeel Hodgson MD 08/12/2014 Laboratory PAMELLA MURPHY MEDICAL RECORDS TECHNICIAN 08/11/2014 Office visit PAMELLA MURPHY MEDICAL RECORDS TECHNICIAN
--- OUTSIDE RECORDS SUMMARY | 2017-08-03 13:34 | XMS REPORT ---
Author Author PAMELLA MURPHY [facility] Address [address] [facility] [address] [place], [place] [id number] Care Team Providers Care Kettleman Name Role Phone PAMELLA MURPHY PCP Unavailable [...] 31 miscellaneous needle 08/15/2014 use as directed [employer] Ultra System Kit miscellaneous kit 08/30/2014 use [...] 2 times a day for 30 days Ventolin HFA 90 mcg/actuation inhalation HFA aerosol inhaler 01/12/2016 INHALE TWO PUFFS BY MOUTH EVERY 4 HOURS NEEDED naproxen sodium 550 mg oral tablet 01/25/2016 take 1 tablet (550 mg) by oral route every 12 hours as needed tramadol 50 mg oral tablet 01/25/2016 take 1 tablet (50 mg) by oral route every 6 hours as needed Name Start Date Expiration Date SIG Comments [...] to exceed 30 mL in 24 hours [place] 7.5-325 mg oral tablet 11/17/2015 01/25/2016 take [...] in 31.0109 kg/m 2.0605 m 99 % 11/28/2015 10:41:00 AM 142 mmHg [...] Returned 11/17/2015 12:00 AM Rocephin 1 gram [facility]#[id number] Reviewed 12/06/2015 12:00 AM LIPID PANEL Returned [...] b 2014 1:42PM Drug abuse and dependence Sep [...] Type II, Uncontrolled Jan 10 2016 10:33AM Payers Insurance Name Company Name Plan Name Plan Number Policy Number Policy Group Number Start Date [facility] - Community [facility] RHC Comm [id number] Sunday, 2013 [facility] Comm Plan of [id number] N/A History of Encounters Visit Date Visit Type Provider 01/25/2016 Office visit PAMELLA MURPHY PRODUCTION ENGINEER TRACK 01/10/2016 Office visit PAMELLA MURPHY PRODUCTION ENGINEER TRACK 12/07/2015 Office visit PAMELLA MURPHY PRODUCTION ENGINEER TRACK 12/06/2015 Laboratory PAMELLA MURPHY PRODUCTION ENGINEER TRACK 11/28/2015 Office visit PAMELLA MURPHY PRODUCTION ENGINEER TRACK 11/21/2015 Office visit PAMELLA MURPHY PRODUCTION ENGINEER TRACK 11/17/2015 Office visit Bhakti MERINO 11/14/2015 Office visit PAMELLA MURPHY PRODUCTION ENGINEER TRACK 09/06/2015 Office visit PAMELLA MURPHY PRODUCTION ENGINEER TRACK 08/29/2015 Voided PAMELLA MURPHY PRODUCTION ENGINEER TRACK 01/31/2015 Office visit PAMELLA MURPHY PRODUCTION ENGINEER TRACK 01/23/2015 Office visit PAMELLA MURPHY PRODUCTION ENGINEER TRACK 01/19/2015 Office visit PAMELLA MURPHY PRODUCTION ENGINEER TRACK 12/19/2014 Office visit PAMELLA MURPHY PRODUCTION ENGINEER TRACK 11/18/2014 Office visit PAMELLA MURPHY PRODUCTION ENGINEER TRACK 11/15/2014 Office visit PAMELLA MURPHY PRODUCTION ENGINEER TRACK 11/05/2014 Hospital Gil Gtz MD 10/18/2014 Office visit PAMELLA MURPHY PRODUCTION ENGINEER TRACK 09/26/2014 Office visit Adeel Hodgson MD 08/12/2014 Laboratory PAMELLA MURPHY PRODUCTION ENGINEER TRACK 08/11/2014 Office visit PAMELLA MURPHY PRODUCTION ENGINEER TRACK
--- OUTSIDE RECORDS SUMMARY | 2017-08-03 13:35 | XMS REPORT ---
Author Author PAMELLA MURPHY [facility] Address [address] [facility] [address] [place], [place] [address] Care Team Providers Care Director Television Name Role Phone PAMELLA MURPHY PCP Unavailable [...] 31 miscellaneous needle 08/15/2014 use as directed T[employer] Ultra System Kit miscellaneous kit 08/30/2014 use [...] to exceed 30 mL in 24 hours [place] 7.5-325 mg oral tablet 11/17/2015 01/25/2016 take [...] Reviewed 11/17/2015 12:00 AM Rocephin 1 gram [facility]#[id number] Reviewed 12/06/2015 12:00 AM ROUTINE VENIPUNCTURE Reviewed [...] Pneumococcal 05/29/2016 [employer] PFR Prevnar 13 [id number] Intramuscular Left Deltoid 05/29/2016 06/29/2015 133 History [...] 02 2016 8:30AM Atherosclerotic heart disease of [place] coronary artery without angina pectoris Aug 05 [...] Policy Group Number Start Date [facility] Comm [id number] Sunday, 2013 [facility] Comm Plan of [id number] N/A History of Encounters Visit Date Visit Type Provider 11/05/2016 Laboratory PAMELLA MURPHY TIPPLE REPAIRER 08/05/2016 Office visit PAMELLA MURPHY TIPPLE REPAIRER 07/02/2016 Laboratory PAMELLA ShieldsJuan Francisco MURPHY TIPPLE REPAIRER 05/29/2016 Nurse visit PAMELLA MURPHY TIPPLE REPAIRER 05/21/2016 Office visit PAMELLA MURPHY TIPPLE REPAIRER 03/19/2016 Laboratory PAMELLA MURPHY TIPPLE REPAIRER 01/25/2016 Office visit PAMELLA MURPHY TIPPLE REPAIRER 01/10/2016 Office visit PAMELLA MURPHY TIPPLE REPAIRER 12/07/2015 Office visit PAMELLA MURPHY TIPPLE REPAIRER 12/06/2015 Laboratory PAMELLA MURPHY TIPPLE REPAIRER 11/28/2015 Office visit PAMELLA MURPHY TIPPLE REPAIRER 11/21/2015 Office visit PAMELLA MURPHY TIPPLE REPAIRER 11/17/2015 Office visit Bhakti Ennis OUTSOLE SKIVER 11/14/2015 Office visit PAMELLA MURPHY TIPPLE REPAIRER 09/06/2015 Office visit PAMELLA MURPHY TIPPLE REPAIRER 08/29/2015 Voided PAMELLA MURPHY TIPPLE REPAIRER 01/31/2015 Office visit PAMELLA MURPHY TIPPLE REPAIRER 01/23/2015 Office visit PAMELLA MURPHY TIPPLE REPAIRER 01/19/2015 Office visit PAMELLA MURPHY TIPPLE REPAIRER 12/19/2014 Office visit PAMELLA MURPHY TIPPLE REPAIRER 11/18/2014 Office visit PAMELLA MURPHY TIPPLE REPAIRER 11/15/2014 Office visit PAMELLA MURPHY TIPPLE REPAIRER 11/05/2014 Hospital Gil Gtz MD 10/18/2014 Office visit PAMELLA MURPHY TIPPLE REPAIRER 09/26/2014 Office visit Adeel Hodgson MD 08/12/2014 Laboratory PAMELLA MURPHY TIPPLE REPAIRER 08/11/2014 Office visit PAMELLA MURPHY TIPPLE REPAIRER
--- OUTSIDE RECORDS SUMMARY | 2017-08-03 13:36 | XMS REPORT ---
Author Author PAMELLA MURPHY [facility] Address [address] [facility] [address] [place], [place] [address] Care Team Providers Care Cushion Sewer Name Role Phone PAMELLA MURPHY PCP Unavailable Allergies and Adverse Reactions Name Reaction Notes Aspirin Plan of Treatment Planned Activity Comments Planned Date Planned Time Plan/Goal GLYCOSYLATED HEMOGLOBIN TEST 08/29/2015 12:00 AM LIPID PANEL 08/29/2015 12:00 AM THER/PROPH/DIAG INJ SC/IM 11/17/2015 12:00 AM GENERAL HEALTH PANEL 12/06/2015 12:00 AM LIPID PANEL 12/06/2015 12:00 AM GLYCOSYLATED HEMOGLOBIN TEST 12/06/2015 12:00 AM Multiple drug screening detection [...] 31 miscellaneous needle 08/15/2014 use as directed [employer] Ultra System Kit miscellaneous kit 08/30/2014 use [...] inhalation route every 4 hours as needed [place] 7.5-325 mg oral tablet 11/17/2015 take 1 [...] TID PRN for Diabetes Type 2 Zithromax Z-Zach 250 mg oral tablet 01/30/2015 [...] 11/17/2015 12:00 AM Rocephin 1 gram [facility]#[id number] Reviewed 08/12/2014 12:00 AM ROUTINE VENIPUNCTURE Reviewed [...] Policy Number Policy Group Number Start Date [facility] - Community Plan [facility] Comm [id number] Sunday, 2013 [facility] Comm Plan of [id number] N/A History of Encounters Visit Date Visit Type Provider 12/06/2015 Laboratory PAMELLA MURPHY OCC MED PHYSICIAN 11/28/2015 Office visit PAMELLA MURPHY OCC MED PHYSICIAN 11/21/2015 Office visit PAMELLA MURPHY OCC MED PHYSICIAN 11/17/2015 Office visit Bhakti MERINO 11/14/2015 Office visit PAMELLA MURPHY OCC MED PHYSICIAN 09/06/2015 Office visit PAMELLA MURPHY OCC MED PHYSICIAN 08/29/2015 Laboratory PAMELLA MURPHY OCC MED PHYSICIAN 01/31/2015 Office visit PAMELLA MURPHY OCC MED PHYSICIAN 01/23/2015 Office visit PAMELLA MURPHY OCC MED PHYSICIAN 01/19/2015 Office visit PAMELLA MURPHY OCC MED PHYSICIAN 12/19/2014 Office visit PAMELLA MURPHY OCC MED PHYSICIAN 11/18/2014 Office visit PAMELLA MURPHY OCC MED PHYSICIAN 11/15/2014 Office visit PAMELLA MURPHY OCC MED PHYSICIAN 11/05/2014 Hospital Gil Gtz MD 10/18/2014 Office visit PAMELLA MURPHY OCC MED PHYSICIAN 09/26/2014 Office visit Adeel Hogdson MD 08/12/2014 Laboratory PAMELLA MURPHY OCC MED PHYSICIAN 08/11/2014 Office visit PAMELLA MURPHY OCC MED PHYSICIAN
--- OUTSIDE RECORDS SUMMARY | 2017-08-03 13:36 | XMS REPORT ---
Author Author PAMELLA MURPHY [facility] Address [address] [facility] [address] [place], [place] [address] Care Team Providers Care Heel Lining Paster Name Role Phone PAMELLA MURPHY PCP Unavailable [...] 31 miscellaneous needle 08/15/2014 use as directed [employer] Ultra System Kit miscellaneous kit 08/30/2014 use [...] to exceed 30 mL in 24 hours [place] 7.5-325 mg oral tablet 11/17/2015 01/25/2016 take [...] Returned 11/17/2015 12:00 AM Rocephin 1 gram [facility]#[id number] Reviewed 12/06/2015 12:00 AM LIPID PANEL Returned [...] Policy Group Number Start Date [facility] - [facility] - Community Plan [facility] Comm [id number] Sunday, 2013 [facility] Comm Plan of [id number] N/A History of Encounters Visit Date Visit Type Provider 03/19/2016 Laboratory PAMELLA MURPHY NEWS PRODUCER 01/25/2016 Office visit PAMELLA MURPHY NEWS PRODUCER 01/10/2016 Office visit PAMELLA MURPHY NEWS PRODUCER 12/07/2015 Office visit PAMELLA MURPHY NEWS PRODUCER 12/06/2015 Laboratory PAMELLA MURPHY NEWS PRODUCER 11/28/2015 Office visit PAMELLA MURPHY NEWS PRODUCER 11/21/2015 Office visit PAMELLA MURPHY NEWS PRODUCER 11/17/2015 Office visit Bhakti MERINO 11/14/2015 Office visit PAMELLA MURPHY NEWS PRODUCER 09/06/2015 Office visit PAMELLA MURPHY NEWS PRODUCER 08/29/2015 Voided PAMELLA MURPHY NEWS PRODUCER 01/31/2015 Office visit PAMELLA MURPHY NEWS PRODUCER 01/23/2015 Office visit PAMELLA MURPHY NEWS PRODUCER 01/19/2015 Office visit PAMELLA MURPHY NEWS PRODUCER 12/19/2014 Office visit PAMELLA MURPHY NEWS PRODUCER 11/18/2014 Office visit PAMELLA MURPHY NEWS PRODUCER 11/15/2014 Office visit PAMELLA MURPHY NEWS PRODUCER 11/05/2014 Hospital Gil Gtz MD 10/18/2014 Office visit PAMELLA MURPHY NEWS PRODUCER 09/26/2014 Office visit Adeel Hodgson MD 08/12/2014 Laboratory PAMELLA MURPHY NEWS PRODUCER 08/11/2014 Office visit PAMELLA MURPHY NEWS PRODUCER
--- OUTSIDE RECORDS SUMMARY | 2017-08-03 13:37 | XMS REPORT ---
Author Author PAMELLA MURPHY [facility] Address [address] [facility] [address] [place], [place] [id number] Care Team Providers Care Undercover Agent Name Role Phone PAMELLA MURPHY PCP Unavailable [...] 31 miscellaneous needle 08/15/2014 use as directed [employer] Ultra System Kit miscellaneous kit 08/30/2014 use [...] to exceed 30 mL in 24 hours [place] 7.5-325 mg oral tablet 11/17/2015 01/25/2016 take [...] Returned 11/17/2015 12:00 AM Rocephin [address] [facility]#[id number] Reviewed 12/06/2015 12:00 AM LIPID PANEL Returned [...] Number Policy Group Number Start Date [facility] - RHC - Community Plan [facility] RHC Comm [id number] Sunday, 2013 [facility] Comm Plan of [id number] N/A History of Encounters Visit Date Visit Type Provider 03/19/2016 Laboratory PAMELLA MURPHY INTERNAL AUDIT SENIOR MANAGER 01/25/2016 Office visit PAMELLA MURPHY INTERNAL AUDIT SENIOR MANAGER 01/10/2016 Office visit PAMELLA MURPHY INTERNAL AUDIT SENIOR MANAGER 12/07/2015 Office visit PAMELLA MURPHY INTERNAL AUDIT SENIOR MANAGER 12/06/2015 Laboratory PAMELLA MURPHY INTERNAL AUDIT SENIOR MANAGER 11/28/2015 Office visit PAMELLA MURPHY INTERNAL AUDIT SENIOR MANAGER 11/21/2015 Office visit PAMELLA MURPHY INTERNAL AUDIT SENIOR MANAGER 11/17/2015 Office visit Bhakti MERINO 11/14/2015 Office visit PAMELLA MURPHY INTERNAL AUDIT SENIOR MANAGER 09/06/2015 Office visit PAMELLA MURPHY INTERNAL AUDIT SENIOR MANAGER 08/29/2015 Voided PAMELLA MURPHY INTERNAL AUDIT SENIOR MANAGER 01/31/2015 Office visit PAMELLA MURPHY INTERNAL AUDIT SENIOR MANAGER 01/23/2015 Office visit PAMELLA MURPHY INTERNAL AUDIT SENIOR MANAGER 01/19/2015 Office visit PAMELLA MURPHY INTERNAL AUDIT SENIOR MANAGER 12/19/2014 Office visit PAMELLA MURPHY INTERNAL AUDIT SENIOR MANAGER 11/18/2014 Office visit PAMELLA MURPHY INTERNAL AUDIT SENIOR MANAGER 11/15/2014 Office visit PAMELLA MURPHY INTERNAL AUDIT SENIOR MANAGER 11/05/2014 Hospital Gil Gtz MD 10/18/2014 Office visit PAMELLA MURPHY INTERNAL AUDIT SENIOR MANAGER 09/26/2014 Office visit Adeel Hodgson MD 08/12/2014 Laboratory PAMELLA MURPHY INTERNAL AUDIT SENIOR MANAGER 08/11/2014 Office visit PAMELLA MURPHY INTERNAL AUDIT SENIOR MANAGER
--- OUTSIDE RECORDS SUMMARY | 2017-08-03 13:38 | XMS REPORT ---
Author Author PAMELLA MURPHY [facility] Address [address] [place], [place] [id number] Care Team Providers Care Steel Worker Name Role Phone PAMELLA MURPHY PCP Unavailable PAMELLA MURPHY PreferredProvider Unavailable Allergies and Adverse Reactions Name Reaction Notes Aspirin Plan of Treatment Planned Activity Comments Planned Date Planned Time Plan/Goal IM Injection 11/17/2015 12:00 AM Injection Of Immunization, Single [facility] Medicaid 05/29/2016 12:00 AM Drug Screen - Non Medicare [...] by topical route 4 times per day Name Start Date Expiration [...] to exceed 30 mL in 24 hours [place] 7.5-325 mg oral tablet 11/17/2015 01/25/2016 take [...] AM Rocephin 1 gram [facility]#[id number] Reviewed 12/06/2015 12:00 AM ROUTINE VENIPUNCTURE Reviewed [...] GENERAL HEALTH PANEL Returned 05/29/2016 12:00 AM PNEUMOCOCCAL VACC 13 JOSE IM Reviewed 07/02/2016 12:00 AM GLYCOSYLATED HEMOGLOBIN TEST [...] Vis Given Vis Pub CVX Pneumococcal 05/29/2016 [employer] PFR Prevnar 13 [id number] Intramuscular Left Deltoid 05/29/2016 06/29/2015 133 History [...] 02 2016 8:30AM Atherosclerotic heart disease of [place] coronary artery without angina pectoris Aug 05 [...] Number Policy Group Number Start Date [facility] - [facility] Comm [id number] Sunday, 2013 [facility] Comm Plan of [id number] N/A History of Encounters Visit Date Visit Type Provider 08/05/2016 Office visit PAMELLA MURPHY PROGRAM CLERK 07/02/2016 Laboratory PAMELLA MURPHY PROGRAM CLERK 05/29/2016 Nurse visit PAMELLA MURPHY PROGRAM CLERK 05/21/2016 Office visit PAMELLA MURPHY PROGRAM CLERK 03/19/2016 Laboratory PAMELLA MURPHY PROGRAM CLERK 01/25/2016 Office visit PAMELLA MURPHY PROGRAM CLERK 01/10/2016 Office visit PAMELLA MURPHY PROGRAM CLERK 12/07/2015 Office visit PAMELLA MURPHY PROGRAM CLERK 12/06/2015 Laboratory PAMELLA MURPHY PROGRAM CLERK 11/28/2015 Office visit PAMELLA MURPHY PROGRAM CLERK 11/21/2015 Office visit PAMELLA MURPHY PROGRAM CLERK 11/17/2015 Office visit Bhakti MERINO 11/14/2015 Office visit PAMELLA MURPHY PROGRAM CLERK 09/06/2015 Office visit PAMELLA MURPHY PROGRAM CLERK 08/29/2015 Voided PAMELLA MURPHY PROGRAM CLERK 01/31/2015 Office visit PAMELLA MURPHY PROGRAM CLERK 01/23/2015 Office visit PAMELLA MURPHY PROGRAM CLERK 01/19/2015 Office visit PAMELLA MURPHY PROGRAM CLERK 12/19/2014 Office visit PAMELLA MURPHY PROGRAM CLERK 11/18/2014 Office visit PAMELLA MURPHY PROGRAM CLERK 11/15/2014 Office visit PAMELLA MURPHY PROGRAM CLERK 11/05/2014 Hospital Gil Gtz MD 10/18/2014 Office visit PAMELLA MURPHY PROGRAM CLERK 09/26/2014 Office visit Adeel Hodgson MD 08/12/2014 Laboratory PAMELLA MURPHY PROGRAM CLERK 08/11/2014 Office visit PAMELLA MURPHY PROGRAM CLERK
--- OUTSIDE RECORDS SUMMARY | 2017-08-03 13:39 | XMS REPORT ---
Author Author PAMELLA MURPHY [facility] Address [address] [facility] [address], [place] [id number] Care Team Providers Care Entry Level Sales Associate Name Role Phone PAMELLA MURPHY PCP Unavailable Allergies and Adverse Reactions Name Reaction Notes Aspirin Plan of Treatment Planned Activity Comments Planned Date Planned Time Plan/Goal LIPID PANEL 08/29/2015 12:00 AM GLYCOSYLATED HEMOGLOBIN TEST 08/29/2015 12:00 AM LIPID PANEL 08/29/2015 12:00 AM GLYCOSYLATED HEMOGLOBIN TEST 08/29/2015 12:00 AM Multiple drug screening detection 09/26/2014 [...] 31 miscellaneous needle 08/15/2014 use as directed [employer] Ultra System Kit miscellaneous kit 08/30/2014 use as directed Test Blood Sugar BID hydrocodone-ibuprofen 7.5-200 mg oral tablet 11/18/2014 take 1 tablet by oral route 3 times a day as needed glimepiride 2 mg oral tablet 11/18/2014 take 1 tablet (2 mg) by oral route once daily Lantus Solostar 100 unit/mL (3 mL) subcutaneous insulin pen 12/27/2014 INJECT 10 UNITS SUBCUTANEOUSLY DAILY AT BEDTIME triamcinolone acetonide 0.5 % topical ointment 01/30/2015 apply a thin layer to the affected area(s) by topical route 3 times per day albuterol sulfate 90 mcg/actuation inhalation HFA aerosol inhaler 01/31/2015 inhale 2 puffs (180 mcg) by inhalation route every 4 hours as needed promethazine-codeine 6.25-10 mg/5 mL oral syrup 01/31/2015 take 5 milliliters by oral route every 4-6 hours as needed, not to exceed 30 mL in 24 hours pravastatin 40 mg oral tablet 04/27/2015 take [...] oral route once daily for 4 days Discontinued Name Start Date Discontinued Date [...] HC BMI BSA BMI Percentile O2 Sat(%) 01/31/2015 3:15:00 PM 142 mmHg 64 mmHg [...] >60 mL/min/1.73 m2Est Avg Glucose 234.6 mg/dL History Of Immunizations Not available. History [...] Lumbar Radiculitis Feb 2014 1:42PM Myofascial pain b 2014 1:42PM Post laminectomy syndrome Sep 26 2014 1:42PM Cauda equina compression Sep 26 [...] for prostate cancer Aug 29 2015 8:45AM Payers Insurance Name Company Name Plan Name Plan Number Policy Number Policy Group Number Start Date [facility] - Community Plan [facility] Comm [id number] Sunday, 2013 [place] Comm Plan of [id number] N/A History of Encounters Visit Date Visit Type Provider 08/29/2015 Laboratory PAMELLA MURPHY LAND DEGRADATION ANALYST 01/31/2015 Office visit PAMELLA MURPHY LAND DEGRADATION ANALYST 01/23/2015 Office visit PAMELLA MURPHY LAND DEGRADATION ANALYST 01/19/2015 Office visit PAMELLA MURPHY LAND DEGRADATION ANALYST 12/19/2014 Office visit PAMELLA MURPHY LAND DEGRADATION ANALYST 11/18/2014 Office visit PAMELLA MURPHY LAND DEGRADATION ANALYST 11/15/2014 Office visit PAMELLA MURPHY LAND DEGRADATION ANALYST 11/05/2014 Hospital Gil Gtz MD 10/18/2014 Office visit PAMELLA MURPHY LAND DEGRADATION ANALYST 09/26/2014 Office visit Adeel Hodgson MD 08/12/2014 Laboratory PAMELLA MURPHY LAND DEGRADATION ANALYST 08/11/2014 Office visit PAMELLA MURPHY LAND DEGRADATION ANALYST
--- OUTSIDE RECORDS SUMMARY | 2017-08-03 13:40 | XMS REPORT ---
Author Author PAMELLA MURPHY [facility] Address [address] [place], [place] [id number] Care Team Providers Care Frame Fixer Name Role Phone PAMELLA MURPHY PCP Unavailable Allergies and Adverse Reactions Name Reaction Notes Aspirin Plan of Treatment Planned Activity Comments Planned Date Planned Time Plan/Goal THER/PROPH/DIAG INJ SC/IM 11/17/2015 12:00 AM Multiple [...] 31 miscellaneous needle 08/15/2014 use as directed [employer] Ultra System Kit miscellaneous kit 08/30/2014 use [...] x 3/16" miscellaneous needle 03/04/2016 USE DIRECTED One Touch [...] to exceed 30 mL in 24 hours [place] 7.5-325 mg oral tablet 11/17/2015 01/25/2016 take [...] HEMOGLOBIN TEST Returned 11/17/2015 12:00 AM Janine crane [facility]#[id number] Reviewed 12/06/2015 12:00 AM ROUTINE VENIPUNCTURE Reviewed [...] Feb 2 2014 1:42PM Cauda equina compression b 2014 [...] lipid rich plaque May 21 2016 10:40AM Payers Insurance Name Company Name Plan Name Plan Number Policy Number Policy Group Number Start Date [facility] - Community [facility] Comm [id number] Sunday, 2013 [facility] Comm Plan of [id number] N/A History of Encounters Visit Date Visit Type Provider 05/21/2016 Office visit PAMELLA MURPHY ECLECTIC DOCTOR 03/19/2016 Laboratory PAMELLA MURPHY ECLECTIC DOCTOR 01/25/2016 Office visit PAMELLA MURPHY ECLECTIC DOCTOR 01/10/2016 Office visit PAMELLA MURPHY ECLECTIC DOCTOR 12/07/2015 Office visit PAMELLA MURPHY ECLECTIC DOCTOR 12/06/2015 Laboratory PAMELLA MURPHY ECLECTIC DOCTOR 11/28/2015 Office visit PAMELLA MURPHY ECLECTIC DOCTOR 11/21/2015 Office visit PAMELLA MURPHY ECLECTIC DOCTOR 11/17/2015 Office visit Bhakti MERINO 11/14/2015 Office visit PAMELLA MURPHY ECLECTIC DOCTOR 09/06/2015 Office visit PAMELLA MURPHY ECLECTIC DOCTOR 08/29/2015 Voided PAMELLA MURPHY ECLECTIC DOCTOR 01/31/2015 Office visit PAMELLA MURPHY ECLECTIC DOCTOR 01/23/2015 Office visit PAMELLA MURPHY ECLECTIC DOCTOR 01/19/2015 Office visit PAMELLA MURPHY ECLECTIC DOCTOR 12/19/2014 Office visit PAMELLA MURPHY ECLECTIC DOCTOR 11/18/2014 Office visit PAMELLA MURPHY ECLECTIC DOCTOR 11/15/2014 Office visit PAMELLA MURPHY ECLECTIC DOCTOR 11/05/2014 Hospital Gil Gtz MD 10/18/2014 Office visit PAMELLA MURPHY ECLECTIC DOCTOR 09/26/2014 Office visit Adeel Hodgson MD 08/12/2014 Laboratory PAMELLA MURPHY ECLECTIC DOCTOR 08/11/2014 Office visit PAMELLA MURPHY ECLECTIC DOCTOR
--- OUTSIDE RECORDS SUMMARY | 2017-08-03 13:41 | XMS REPORT ---
Author Author PAMELLA MURPHY Organization [facility] Address [address] [place], [place] [address] Care Team Providers Care Bill Adjuster Name Role Phone PAMELLA MURPHY PCP Unavailable [...] 31 miscellaneous needle 08/15/2014 use as directed [employer]uch Ultra System Kit miscellaneous kit 08/30/2014 use [...] to exceed 30 mL in 24 hours [place] 7.5-325 mg oral tablet 11/17/2015 01/25/2016 take [...] Reviewed 11/17/2015 12:00 AM Rocephin 1 gram [facility]#[id number] Reviewed 12/06/2015 12:00 AM ROUTINE VENIPUNCTURE Reviewed [...] Pneumococcal 05/29/2016 [employer] PFR Prevnar 13 [id number] Intramuscular Left Deltoid 05/29/2016 06/29/2015 133 History [...] 02 2016 8:30AM Atherosclerotic heart disease of [place] coronary artery without angina pectoris Aug 05 [...] Policy Number Policy Group Number Start Date [facility] - Community [facility] Comm [id number] Sunday, 2013 [facility] Comm Plan of [id number] N/A History of Encounters Visit Date Visit Type Provider 08/05/2016 Office visit PAMELLA MURPHY PLANT BREEDER 07/02/2016 Laboratory PAMELLA MURPHY PLANT BREEDER 05/29/2016 Nurse visit PAMELLA MURPHY PLANT BREEDER 05/21/2016 Office visit PAMELLA MURPHY PLANT BREEDER 03/19/2016 Laboratory PAMELLA MURPHY PLANT BREEDER 01/25/2016 Office visit PAMELLA MURPHY PLANT BREEDER 01/10/2016 Office visit PAMELLA MURPHY PLANT BREEDER 12/07/2015 Office visit PAMELLA MURPHY PLANT BREEDER 12/06/2015 Laboratory PAMELLA MURPHY PLANT BREEDER 11/28/2015 Office visit PAMELLA MURPHY PLANT BREEDER 11/21/2015 Office visit PAMELLA MURPHY PLANT BREEDER 11/17/2015 Office visit Bhakti MERINO 11/14/2015 Office visit PAMELLA MURPHY PLANT BREEDER 09/06/2015 Office visit PAMELLA MURPHY PLANT BREEDER 08/29/2015 Voided PAMELLA MURPHY PLANT BREEDER 01/31/2015 Office visit PAMELLA MURPHY PLANT BREEDER 01/23/2015 Office visit PAMELLA MURPHY PLANT BREEDER 01/19/2015 Office visit PAMELLA MURPHY PLANT BREEDER 12/19/2014 Office visit PAMELLA MURPHY PLANT BREEDER 11/18/2014 Office visit PAMELLA MURPHY PLANT BREEDER 11/15/2014 Office visit PAMELLA MURPHY PLANT BREEDER 11/05/2014 Hospital Gil Gtz MD 10/18/2014 Office visit PAMELLA MURPHY PLANT BREEDER 09/26/2014 Office visit Adeel Hodgson MD 08/12/2014 Laboratory PAMELLA MURPHY PLANT BREEDER 08/11/2014 Office visit PAMELLA MURPHY PLANT BREEDER
--- OUTSIDE RECORDS SUMMARY | 2017-08-03 13:42 | XMS REPORT ---
Author Author PAMELLA MURPHY [facility] Address [address] [facility] [address] [place], [place] [id number] Care Team Providers Care Music Education Director Name Role Phone PAMELLA MURPHY PCP Unavailable [...] BEDTIME triamcinolone acetonide topical ointment 0.5 % 01/30/2015 apply a thin layer to the affected area(s) by topical route 3 times per day albuterol sulfate inhalation HFA aerosol inhaler 90 mcg/actuation 01/31/2015 inhale 2 puffs (180 mcg) by inhalation route every 4 hours as needed promethazine-codeine oral syrup 6.25-10 mg/5 mL 01/31/2015 take 5 milliliters by oral route every 4-6 hours as needed, not to exceed 30 mL in 24 hours Name Start Date Expiration Date SIG Comments [...] pack 4 mg 09/26/2014 take as directed Zithromax Z-Zach oral tablet 250 mg 01/30/2015 02/04/2015 take 2 tablets (500 mg [...] pain Feb 2014 1:42PM Post laminectomy syndrome b 2014 1:42PM Cauda equina compression b 2014 1:42PM Drug abuse and dependence b 2014 1:42PM Chronic pain disorder Sep 26 [...] 10:28AM Acute bronchitis Jan 31 2015 3:20PM Payers Insurance Name Company Name Plan Name Plan Number Policy Number Policy Group Number Start Date [facility] - Community [facility] Comm [id number] Sunday, 2013 [facility] Comm Plan of [id number] N/A History of Encounters Visit Date Visit Type Provider 01/31/2015 Office visit PAMELLA MURPHY COMMERCIAL LINES ACCOUNT MANAGER 01/23/2015 Office visit PAMELLA MURPHY COMMERCIAL LINES ACCOUNT MANAGER 01/19/2015 Office visit PAMELLA MURPHY COMMERCIAL LINES ACCOUNT MANAGER 12/19/2014 Office visit PAMELLA MURPHY COMMERCIAL LINES ACCOUNT MANAGER 11/18/2014 Office visit PAMELLA MURPHY COMMERCIAL LINES ACCOUNT MANAGER 11/15/2014 Office visit PAMELLA MURPHY COMMERCIAL LINES ACCOUNT MANAGER 10/18/2014 Office visit PAMELLA MURPHY COMMERCIAL LINES ACCOUNT MANAGER 09/26/2014 Office visit Adeel Hodgson MD 08/12/2014 Laboratory PAMELLA MURPHY COMMERCIAL LINES ACCOUNT MANAGER 08/11/2014 Office visit PAMELLA MURPHY COMMERCIAL LINES ACCOUNT MANAGER
--- OUTSIDE RECORDS SUMMARY | 2017-08-03 13:42 | XMS REPORT ---
Author Author Bhakti Ennis [facility] Address [address] [place], [place] [address] Care Team Providers Care Isobutylene Operator Chief Name Role Phone Bhakti Ennis PCP Allergies and Adverse Reactions Name Reaction Notes [...] 31 miscellaneous needle 08/15/2014 use as directed [employer] Ultra System Kit miscellaneous kit 08/30/2014 use [...] WITH MEALS glimepiride 2 mg oral tablet 10/12/2015 TAKE 1 TABLET BY MOUTH ONCE DAILY OneTouch Ultra Test miscellaneous strip 10/30/2015 USE TO TEST BLOOD SUGAR THREE TIMES DAILY NEEDED DIABETES pravastatin 40 mg oral tablet 10/30/2015 take 1 tablet (40 mg) by oral route once daily at bedtime Ventolin HFA 90 mcg/actuation inhalation HFA aerosol inhaler 11/14/2015 inhale 2 puffs (180 mcg) by inhalation route every 4 hours as needed [place] 7.5-325 mg oral tablet 11/17/2015 take 1 tablet by oral route every 4 -6 hours as needed for pain Levaquin 750 mg oral tablet 11/17/2015 11/22/2015 take 1 tablet (750 mg) by oral route once daily for 5 days Ciprodex 0.3-0.1 % otic drops,suspension 11/17/2015 11/24/2015 instill 4 drops into right ear by otic route 2 times per day for 7 days Name Start Date Expiration Date SIG [...] HC BMI BSA BMI Percentile O2 Sat(%) 11/17/2015 10:59:00 AM 130 mmHg 78 mmHg [...] HEMOGLOBIN TEST Returned 11/17/2015 12:00 AM Janine Dominguez gram [facility]#[id number] Reviewed 08/12/2014 12:00 AM ROUTINE VENIPUNCTURE Reviewed [...] Radiculitis Sep 26 2014 1:42PM Myofascial pain Sep 26 2014 1:42PM Post laminectomy syndrome Sep 26 [...] 18 2014 1:35PM Diabetes Mellitus, Type II Mar 24 2015 2:50PM Degeneration of lumbar intervertebral disc Nov [...] bronchitis, unspecified organism Nov 17 2015 11:01AM Payers Insurance Name Company Name Plan Name Plan Number Policy Number Policy Group Number Start Date [facility] Comm [id number] Sunday, 2013 [facility] [place] Comm Plan of [id number] N/A History of Encounters Visit Date Visit Type Provider 11/17/2015 Office visit Bhakti MERINO 11/14/2015 Office visit PAMELLA MURPHY MICA SPREADER 09/06/2015 Office visit PAMELLA MURPHY MICA SPREADER 08/29/2015 Laboratory PAMELLA MURPHY MICA SPREADER 01/31/2015 Office visit PAMELLA MURPHY MICA SPREADER 01/23/2015 Office visit PAMELLA MURPHY MICA SPREADER 01/19/2015 Office visit PAMELLA MURPHY MICA SPREADER 12/19/2014 Office visit PAMELLA MURPHY MICA SPREADER 11/18/2014 Office visit PAMELLA MURPHY MICA SPREADER 11/15/2014 Office visit PAMELLA MURPHY MICA SPREADER 11/05/2014 [facility] Gil Gtz MD 10/18/2014 Office visit PAMELLA MURPHY MICA SPREADER 09/26/2014 Office visit Adeel Hodgson MD 08/12/2014 Laboratory PAMELLA UMRPHY MICA SPREADER 08/11/2014 Office visit PAMELLA MURPHY MICA SPREADER
--- OUTSIDE RECORDS SUMMARY | 2017-08-03 13:43 | XMS REPORT ---
Author Author PAMELLA MURPHY [facility] Address [address] [address] [place], [place] [id number] Care Team Providers Care Sas Developer Name Role Phone PAMELLA MURPHY PCP Unavailable [...] Policy Number Policy Group Number Start Date [facility] - Community [facility] Comm [id number] Sunday, 2013 [facility] Comm Plan of [id number] N/A History of Encounters Visit Date Visit Type Provider 01/31/2015 Office visit PAMELLA MURPHY PURCHASING ENGINEER 01/23/2015 Office visit PAMELLA MURPHY PURCHASING ENGINEER 01/19/2015 Office visit PAMELLA MURPHY PURCHASING ENGINEER 12/19/2014 Office visit PAMELLA MURPHY PURCHASING ENGINEER 11/18/2014 Office visit PAMELLA MURPHY PURCHASING ENGINEER 11/15/2014 Office visit PAMELLA MURPHY PURCHASING ENGINEER 10/18/2014 Office visit PAMELLA MURPHY PURCHASING ENGINEER 09/26/2014 Office visit Adeel Hodgson MD 08/12/2014 Laboratory PAMELLA MURPHY PURCHASING ENGINEER 08/11/2014 Office visit PAMELLA MURPHY PURCHASING ENGINEER
--- OUTSIDE RECORDS SUMMARY | 2017-08-03 13:44 | XMS REPORT ---
Author Author PAMELLA MURPHY Organization [facility] Address [address] [place], [place] [address] Care Team Providers Care Bolt Loader Name Role Phone PAMELLA MURPHY PCP Unavailable [...] 31 miscellaneous needle 08/15/2014 use as directed [employer] Ultra System Kit miscellaneous kit 08/30/2014 use [...] to exceed 30 mL in 24 hours [place] 7.5-325 mg oral tablet 11/17/2015 01/25/2016 take [...] Reviewed 11/17/2015 12:00 AM Rocephin [address] [facility]#[id number] Reviewed 12/06/2015 12:00 AM ROUTINE VENIPUNCTURE Reviewed [...] Pneumococcal 05/29/2016 Pf[employer] PFR Prevnar 13 [id number] Intramuscular Left Deltoid 05/29/2016 06/29/2015 133 History [...] 02 2016 8:30AM Atherosclerotic heart disease of [place] coronary artery without angina pectoris Aug 05 [...] Number Policy Group Number Start Date [facility] - Community [facility] Comm [id number] Sunday, 2013 [facility] Comm Plan of [id number] N/A History of Encounters Visit Date Visit Type Provider 08/05/2016 Office visit PAMELLA MURPHY SUPERVISING FLOORPERSON 07/02/2016 Laboratory PAMELLA MURPHY SUPERVISING FLOORPERSON 05/29/2016 Nurse visit PAMELLA MURPHY SUPERVISING FLOORPERSON 05/21/2016 Office visit PAMELLA MURPHY SUPERVISING FLOORPERSON 03/19/2016 Laboratory PAMELLA MURPHY SUPERVISING FLOORPERSON 01/25/2016 Office visit PAMELLA MURPHY SUPERVISING FLOORPERSON 01/10/2016 Office visit PAMELLA MURPHY SUPERVISING FLOORPERSON 12/07/2015 Office visit PAMELLA MURPHY SUPERVISING FLOORPERSON 12/06/2015 Laboratory PAMELLA MURPHY SUPERVISING FLOORPERSON 11/28/2015 Office visit PAMELLA MURPHY SUPERVISING FLOORPERSON 11/21/2015 Office visit PAMELLA MURPHY SUPERVISING FLOORPERSON 11/17/2015 Office visit Bhakti MERINO 11/14/2015 Office visit PAMELLA MURPHY SUPERVISING FLOORPERSON 09/06/2015 Office visit PAMELLA MURPHY SUPERVISING FLOORPERSON 08/29/2015 Voided PAMELLA MURPHY SUPERVISING FLOORPERSON 01/31/2015 Office visit PAMELLA MURPHY SUPERVISING FLOORPERSON 01/23/2015 Office visit PAMELLA MURPHY SUPERVISING FLOORPERSON 01/19/2015 Office visit PAMELLA MURPHY SUPERVISING FLOORPERSON 12/19/2014 Office visit PAMELLA MURPHY SUPERVISING FLOORPERSON 11/18/2014 Office visit PAMELLA MURPHY SUPERVISING FLOORPERSON 11/15/2014 Office visit PAMELLA MURPHY SUPERVISING FLOORPERSON 11/05/2014 Hospital Gil Gtz MD 10/18/2014 Office visit PAMELLA MURPHY SUPERVISING FLOORPERSON 09/26/2014 Office visit Adeel Hodgson MD 08/12/2014 Laboratory PAMELLA MURPHY SUPERVISING FLOORPERSON 08/11/2014 Office visit PAMELLA MURPHY SUPERVISING FLOORPERSON
--- OUTSIDE RECORDS SUMMARY | 2017-08-03 13:45 | XMS REPORT ---
Author Author PAMELLA MURPHY [facility] Address [address] [facility] [address] [place], [place] [phone] Care Team Providers Care Systems Integration Manager Name Role Phone PAMELLA MURPHY PCP Unavailable PAMELLA MURPHY PreferredProvider Unavailable Allergies and Adverse Reactions Name Reaction Notes Aspirin Plan of Treatment Planned Activity Comments Planned Date Planned Time Plan/Goal IM Injection 11/17/2015 12:00 AM Injection Of Immunization, Single [facility] Medicaid 05/29/2016 12:00 AM Hemoglobin A1C 07/02/2016 12:00 AM General health panel (CMP, CBC, TSH) 07/02/2016 12:00 AM LIPID PANEL 07/02/2016 12:00 AM Drug Screen - Non Medicare [...] 31 miscellaneous needle 08/15/2014 use as directed [employer] Ultra System Kit miscellaneous kit 08/30/2014 use [...] Mini 31 gauge x 316" miscellaneous needle 05/03/2015 USE DIRECTED Lancets,Ultra Thin [...] to exceed 30 mL in 24 hours [place] 7.5-325 mg oral tablet 11/17/2015 01/25/2016 [...] 11/17/2015 12:00 AM Rocephin 1 gram [facility]#[id number] Reviewed 12/06/2015 12:00 AM ROUTINE VENIPUNCTURE Reviewed [...] AM PNEUMOCOCCAL VACC 13 JOSE IM Reviewed 08/12/2014 12:00 AM ROUTINE VENIPUNCTURE Reviewed [...] 124 eGFR >60 mL/min/ 1.73meGFR AA* >60 History Of Immunizations Name Date Admin Mfg Name Mfg Code Trade Name Lot# Route Inj Vis Given Vis Pub CVX Pneumococcal 05/29/2016 [employer] PFR Prevnar 13 [id number] Intramuscular Left Deltoid 05/29/2016 06/29/2015 133 History [...] 2016 8:30AM Hyperlipidemia Jul 02 2016 8:30AM Payers Insurance Name Company Name Plan Name Plan Number Policy Number Policy Group Number Start Date [facility] - Community [facility] Comm [id number] Sunday, 2013 [facility] Comm Plan of [id number] N/A History of Encounters Visit Date Visit Type Provider 07/02/2016 Laboratory PAMELLA MURPHY SCHOOL CHILD CARE ATTENDANT 05/29/2016 Nurse visit PAMELLA MURPHY SCHOOL CHILD CARE ATTENDANT 05/21/2016 Office visit PAMELLA MURPHY SCHOOL CHILD CARE ATTENDANT 03/19/2016 Laboratory PAMELLA MURPHY SCHOOL CHILD CARE ATTENDANT 01/25/2016 Office visit PAMELLA MURPHY SCHOOL CHILD CARE ATTENDANT 01/10/2016 Office visit PAMELLA MURPHY SCHOOL CHILD CARE ATTENDANT 12/07/2015 Office visit PAMELLA MURPHY SCHOOL CHILD CARE ATTENDANT 12/06/2015 Laboratory PAMELLA MURPHY SCHOOL CHILD CARE ATTENDANT 11/28/2015 Office visit PAMELLA MURPHY SCHOOL CHILD CARE ATTENDANT 11/21/2015 Office visit PAMELLA MURPHY SCHOOL CHILD CARE ATTENDANT 11/17/2015 Office visit Bhakti MERINO 11/14/2015 Office visit PAMELLA MURPHY SCHOOL CHILD CARE ATTENDANT 09/06/2015 Office visit PAMELLA MURPHY SCHOOL CHILD CARE ATTENDANT 08/29/2015 Voided PAMELLA MURPHY SCHOOL CHILD CARE ATTENDANT 01/31/2015 Office visit PAMELLA MURPHY SCHOOL CHILD CARE ATTENDANT 01/23/2015 Office visit PAMELLA MURPHY SCHOOL CHILD CARE ATTENDANT 01/19/2015 Office visit PAMELLA MURPHY SCHOOL CHILD CARE ATTENDANT 12/19/2014 Office visit PAMELLA MURPHY SCHOOL CHILD CARE ATTENDANT 11/18/2014 Office visit PAMELLA MURPHY SCHOOL CHILD CARE ATTENDANT 11/15/2014 Office visit PAMELLA MURPHY SCHOOL CHILD CARE ATTENDANT 11/05/2014 Hospital Gil Gtz MD 10/18/2014 Office visit PAMELLA MURPHY SCHOOL CHILD CARE ATTENDANT 09/26/2014 Office visit Adeel Hodgson MD 08/12/2014 Laboratory PAMELLA MURPHY APRN 08/11/2014 Office visit PAMELLA MURPHY APRN
--- OUTSIDE RECORDS SUMMARY | 2017-08-03 13:45 | XMS REPORT ---
Author Author PAMELLA MURPHY [facility] Address [address] [facility] [address] [place], [place] [id number] Care Team Providers Care Obstetrics Technician Name Role Phone PAMELLA MURPHY PCP [...] route 3 times per day Zithromax Z-Zach oral tablet 250 mg 01/30/2015 02/04/2015 take 2 tablets (500 mg ) by oral route once daily for 1 day then 1 tablet (250 mg) by oral route once daily for 4 days Name Start Date Expiration Date SIG [...] Group Number Start Date [facility] - RH - Community Plan [facility] Comm [id number] Sunday, [address] [facility] Community Plan [facility] Comm Plan of [id number] N/A History of Encounters Visit Date Visit Type Provider 01/23/2015 Office visit PAMELLA MURPHY EMPLOYEE HEALTH RN 01/19/2015 Office visit PAMELLA MRUPHY EMPLOYEE HEALTH RN 12/19/2014 Office visit PAMELLA MURPHY EMPLOYEE HEALTH RN 11/18/2014 Office visit PAMELLA MURPHY EMPLOYEE HEALTH RN 11/15/2014 Office visit PAMELLA MURPHY EMPLOYEE HEALTH RN 10/18/2014 Office visit PAMELLA MURPHY EMPLOYEE HEALTH RN 09/26/2014 Office visit Adeel Hodgson MD 08/12/2014 Laboratory PAMELLA MURPHY EMPLOYEE HEALTH RN 08/11/2014 Office visit PAMELLA MURPHY EMPLOYEE HEALTH RN
--- OUTSIDE RECORDS SUMMARY | 2017-08-03 13:46 | XMS REPORT ---
Author Author Bhakti Ennis [facility] Address [address] [facility] [address] [place], [place] [id number] Care Team Providers Care Optical Goods Drilling Machine Operator Name Role Phone Bhakti Ennis PCP Allergies [...] 31 miscellaneous needle 08/15/2014 use as directed Reacción Ultra System Kit miscellaneous kit 08/30/2014 use [...] inhalation route every 4 hours as needed [place] 7.5-325 mg oral tablet 11/17/2015 take 1 [...] Returned 11/17/2015 12:00 AM Janine Dominguez gram [facility]#[id number] Reviewed 08/12/2014 12:00 AM ROUTINE VENIPUNCTURE Reviewed [...] Date [facility] - [facility] - Community [facility] Comm [id number] Sunday, 2013 [facility] Comm Plan of [id number] N/A History of Encounters Visit Date Visit Type Provider 11/17/2015 Office visit Bhakti MREINO 11/14/2015 Office visit PAMELLA MURPHY PIG MACHINE SUPERVISOR 09/06/2015 Office visit PAMELLA MURPHY PIG MACHINE SUPERVISOR 08/29/2015 Laboratory PAMELLA MURPHY PIG MACHINE SUPERVISOR 01/31/2015 Office visit PAMELLA MURPHY PIG MACHINE SUPERVISOR 01/23/2015 Office visit PAMELLA MURPHY PIG MACHINE SUPERVISOR 01/19/2015 Office visit PAMELLA MURPHY PIG MACHINE SUPERVISOR 12/19/2014 Office visit PAMELLA MURPHY PIG MACHINE SUPERVISOR 11/18/2014 Office visit PAMELLA MURPHY PIG MACHINE SUPERVISOR 11/15/2014 Office visit PAMELLA MURPHY PIG MACHINE SUPERVISOR 11/05/2014 [facility] Gil Gtz MD 10/18/2014 Office visit PAMELLA MURPHY PIG MACHINE SUPERVISOR 09/26/2014 Office visit Adeel Hodgson MD 08/12/2014 Laboratory PAMELLA MURPHY PIG MACHINE SUPERVISOR 08/11/2014 Office visit PAMELLA MURPHY PIG MACHINE SUPERVISOR
--- OUTSIDE RECORDS SUMMARY | 2017-08-03 13:47 | XMS REPORT ---
Author Author PAMELLA MURPHY [facility] Address [address] [facility] [address] [place], [place] [id number] Care Team Providers Care Sausage Stuffer Name Role Phone PAMELLA MURPHY PCP Unavailable [...] Policy Number Policy Group Number Start Date [facility] - RHC - Community Plan [facility]HC Comm [id number] Sunday, 2013 [facility] Comm Plan of [id number] N/A History of Encounters Visit Date Visit Type Provider 01/23/2015 Office visit PAMELLA MURPHY TIE KNITTER HELPER 01/19/2015 Office visit PAMELLA MURPHY TIE KNITTER HELPER 12/19/2014 Office visit PAMELLA MURPHY TIE KNITTER HELPER 11/18/2014 Office visit PAMELLA MURPHY TIE KNITTER HELPER 11/15/2014 Office visit PAMELLA MURPHY TIE KNITTER HELPER 10/18/2014 Office visit PAMELLA MURPHY TIE KNITTER HELPER 09/26/2014 Office visit Adeel Hodgson MD 08/12/2014 Laboratory PAMELLA MURPHY TIE KNITTER HELPER 08/11/2014 Office visit PAMELLA MURPHY TIE KNITTER HELPER
--- OUTSIDE RECORDS SUMMARY | 2017-08-03 13:47 | XMS REPORT ---
Author Author PAMELLA MURPHY [facility] Address [address] [place], [place] [id number] Care Team Providers Care Sofa Cover Inspector Name Role Phone PAMELLA MURPHY PCP Unavailable Allergies and Adverse Reactions Name Reaction Notes Aspirin Plan of Treatment Planned Activity Comments Planned Date Planned Time Plan/Goal Multiple drug screening detection 09/26/2014 12:00 AM Urine drug screen (amphetamine, barbiturate, cocaine, opiates, PCP, methaqualone, benzodiazepine) 09/26/2014 12:00 AM COMPREHEN METABOLIC PANEL 11/15/2014 12:00 AM Medications Active Name Start Date Estimated Completion Date SIG Comments clopidogrel oral tablet 75 mg take 1 tablet (75 mg) by oral route once daily carvedilol oral tablet 6.25 mg take 1 tablet (6.25 mg) by oral route 2 times per day with food Aspir-81 oral tablet,delayed release (DR/EC) 81 mg take 1 tablet (81 mg ) by oral route once daily enalapril maleate oral tablet 5 mg take 1 tablet (5 mg) by oral route once daily pravastatin oral [...] use as directed Test Blood Sugar BID Neurontin oral capsule 300 mg 09/26/2014 01/24/2015 take 1 capsule (300 mg) by oral route 3 times per day for 30 days hydrocodone-ibuprofen oral tablet 7.5-200 mg 11/18/2014 take 1 tablet by oral route 3 times a day as needed glimepiride oral tablet 2 mg 11/18/2014 take 1 tablet (2 mg) by oral route once daily One Touch Test stips 12/20/2014 04/19/2015 Test Blood sugar TID PRN for Diabetes Type 2 Name Start Date Expiration Date SIG Comments Anaprox DS oral tablet 550 mg 08/15/2014 [...] miscellaneous strip 08/23/2014 08/30/2014 use as directed Problem List Description Status Onset Diabetes Mellitus, Type II, Uncontrolled Active Anemia Active Hyperlipidemia Active Degeneration of lumbar intervertebral disc Active 08/29/2014 Lumbago Active 08/29/2014 Hypertension Active 10/19/2014 Vital Signs Date Time BP-Sys(mm[Hg] BP-Rebecca(mm[Hg]) HR(bpm) RR(rpm) Temp WT HT HC BMI BSA BMI Percentile O2 Sat(%) 12/19/2014 10:33:00 AM 140 mmHg 88 mmHg [...] F 186.5 lbs 67 in 29.2097 kg/m 2.00 m2 99 % Social History Name Description Comments lives with girlfriend Lives with Daughter Engaged Did not graduate from High School Chewing Tobacco Denies substance abuse denies alcohol use UNEMPLOYEED History of Procedures Date Ordered Description Order Status 08/12/2014 12:00 AM COMPLETE CBC W/AUTO DIFF WBC Returned 08/12/2014 12:00 AM COMPREHEN METABOLIC PANEL Returned 08/12/2014 12:00 AM LIPID PANEL Returned 08/12/2014 12:00 AM GLYCOSYLATED HEMOGLOBIN TEST Returned 08/12/2014 12:00 AM ASSAY THYROID STIM HORMONE Returned 09/26/2014 12:00 AM MRI LUMBAR SPINE W/O & W/DYE Returned 11/15/2014 12:00 AM GLYCOSYLATED HEMOGLOBIN TEST Reviewed [...] 2014 10:35AM Hyperlipidemia Dec 19 2014 10:35AM Payers Insurance Name Company Name Plan Name Plan Number Policy Number Policy Group Number Start Date [facility] Comm [id number] Sunday, 2013 [facility] Comm Plan of [id number] N/A History of Encounters Visit Date Visit Type Provider 12/19/2014 Office visit PAMELLA MURPHY SAND OPERATOR 11/18/2014 Office visit PAMELLA MURPHY SAND OPERATOR 11/15/2014 Office visit PAMELLA MURPHY SAND OPERATOR 10/18/2014 Office visit PAMELLA MURPHY SAND OPERATOR 09/26/2014 Office visit Adeel Hodgson MD 08/12/2014 Laboratory PAMELLA MURPHY SAND OPERATOR 08/11/2014 Office visit PAMELLA MURPHY SAND OPERATOR
--- OUTSIDE RECORDS SUMMARY | 2017-08-03 13:48 | XMS REPORT ---
Author Author PAMELLA MURPHY [facility] Address [address] [facility] [address] [place], [place] [phone] Care Team Providers Care Simulation Analyst Name Role Phone PAMELLA MURPHY PCP Unavailable [...] 31 miscellaneous needle 08/15/2014 use as directed Alytics Ultra System Kit miscellaneous kit 08/30/2014 use [...] inhalation route every 4 hours as needed [place] 7.5-325 mg oral tablet 11/17/2015 take 1 [...] Returned 11/17/2015 12:00 AM Rocephin 1 gram [facility]#[id number] Reviewed 12/06/2015 12:00 AM LIPID PANEL Returned [...] Number Policy Group Number Start Date [facility] [id number] Sunday, 2013 [facility] Comm Plan of [id number] N/A History of Encounters Visit Date Visit Type Provider 12/07/2015 Office visit PAMELLA MURPHY TRACTOR MECHANIC 12/06/2015 Laboratory PAMELLA MURPHY TRACTOR MECHANIC 11/28/2015 Office visit PAMELLA MURPHY TRACTOR MECHANIC 11/21/2015 Office visit PAMELLA MURPHY TRACTOR MECHANIC 11/17/2015 Office visit Bhakti MERINO 11/14/2015 Office visit PAMELLA MURPHY TRACTOR MECHANIC 09/06/2015 Office visit PAMELLA MURPHY TRACTOR MECHANIC 08/29/2015 Laboratory PAMELLA MURPHY TRACTOR MECHANIC 01/31/2015 Office visit PAMELLA MURPHY TRACTOR MECHANIC 01/23/2015 Office visit PAMELLA MURPHY TRACTOR MECHANIC 01/19/2015 Office visit PAMELLA MURPHY TRACTOR MECHANIC 12/19/2014 Office visit PAMELLA MURPHY TRACTOR MECHANIC 11/18/2014 Office visit PAMELLA MURPHY TRACTOR MECHANIC 11/15/2014 Office visit PAMELLA MURPHY TRACTOR MECHANIC 11/05/2014 Hospital Gil Gtz MD 10/18/2014 Office visit PAMELLA UMRPHY TRACTOR MECHANIC 09/26/2014 Office visit Adeel Hodgson MD 08/12/2014 Laboratory PAMELLA MURPHY TRACTOR MECHANIC 08/11/2014 Office visit PAMELLA MURPHY TRACTOR MECHANIC
--- OUTSIDE RECORDS SUMMARY | 2017-08-03 13:48 | XMS REPORT ---
Author Author PAMELLA MURPHY [facility] Address [address] [facility] [address] [place], [place] [phone] Care Team Providers Care Pressure Welder Name Role Phone PAMELLA MURPHY PCP Unavailable [...] INJECT 10 UNITS SUBCUTANEOUSLY DAILY AT BEDTIME Name Start Date Expiration Date SIG Comments [...] HC BMI BSA BMI Percentile O2 Sat(%) 01/19/2015 10:45:00 AM 146 mmHg 86 mmHg [...] 2015 10:48AM Hyperlipidemia Jan 19 2015 10:48AM Payers Insurance Name Company Name Plan Name Plan Number Policy Number Policy Group Number Start Date [facility] - Community [facility] Comm [id number] Sunday, 2013 [facility] Comm Plan of [id number] N/A History of Encounters Visit Date Visit Type Provider 01/19/2015 Office visit PAMELLA MURPHY LOCAL COMPANY INTERMODAL TRUCK DRIVER 12/19/2014 Office visit PAMELLA MURPHY LOCAL COMPANY INTERMODAL TRUCK DRIVER 11/18/2014 Office visit PAMELLA MURPHY LOC[employer] COMPANY INTERMODAL TRUCK DRIVER 11/15/2014 Office visit PAMELLA MURPHY LOCAL COMPANY INTERMODAL TRUCK DRIVER 10/18/2014 Office visit PAMELLA MURPHY [employer] COMPANY INTERMODAL TRUCK DRIVER 09/26/2014 Office visit Adeel Hodgson MD 08/12/2014 Laboratory PAMELLA MURPHY [employer] INTERMODAL TRUCK DRIVER 08/11/2014 Office visit PAMELLA MURPHY [employer] COMPANY INTERMODAL TRUCK DRIVER
--- OUTSIDE RECORDS SUMMARY | 2017-08-03 13:48 | XMS REPORT | Continuity of Care Document ---
Author Author [facility] Address [facility] [address] [place] [id number] Phone Unavailable Support Name Relationship Address Phone AMY NOEL DO Caregiver [address] [place] [address] HAIM CARUSO Next Of Kin [address] [place] [address] Insurance Providers Payer Name Policy Number Subscriber Name Relationship Wc Other [id number] Gretel Avila Sr 17 Self / Same As Patient [facility] [id number] Gretel Avila Sr 17 Self / Same As Patient Advance Directives Directive Response Recorded Date/Time Advance Directives No 02/05/16 9:55am Living Will N N 11/20/16 11:40am Health Care Proxy No 11/20/16 11:40am Power of Supervisor Drawing for Health Care No 02/05/16 9:55am Organ, Tissue, or Eye Donor No 02/05/16 9:55am Do you have a signed organ donor card? No 02/05/16 9:55am Chief Complaint and Reason for Visit Chief Complaint LACERATION Reason for Visit [id number] Problems Active Problems Medical Problem Onset Date Status Finger laceration Unknown Acute Medications Current Home Medications Medication Dose Units Route Directions Days/Qty Instructions Start Date Metformin Hcl 1 000 1,000 Mg Oral Twice A Day 11/20/16 Insulin Glargine 100 U/Ml 10 Units Sub-Q Bedtime 11/20/16 Aspirin 81 Mg 81 Mg Oral Daily 11/20/16 Glimepiride 2 Mg 2 Mg Oral Twice A Day 11/20/16 Social History Social History Problem Response Recorded Date/Time Smoking Status Current every day smoker 11/20/2016 12:47pm Tobacco Use Cigarettes 11/20/2016 12:47pm Alcohol Use none 11/20/2016 12:47pm Drug Use none 11/20/2016 12:47pm Query Response Start Date Stop Date Smoking Status Current every day smoker Hospital Discharge Instructions No hospital discharge instructions. Plan of Care Discharge Date 11/20/16 1:00pm Condition at Discharge Stable Instructions/Education Provided Finger Laceration (ED) Prescriptions See Medication Section Referrals REFUGIO COLUNGA D.O. - Functional Status Query Response Date Recorded [place] Coma Scale Total 15 November 20, 2016 11:37am Patient Behavior Cooperative Appropriate November 20, 2016 11:37am Allergies, Adverse Reactions, Alerts No known allergies. Immunizations Name Given Type Hx Diphtheria, Pertussis, Tetanus Vaccination Unknown Historical Hx Influenza Vaccination Y FALL 2015 Historical Hx Pneumococcal Vaccination Yes Historical Vital Signs Acute Vital Signs Vital Response Date/Time Temperature (Fahrenheit) 98.8 degrees F (97.6 - 99.5) 11/20/2016 12:55pm Temperature Source Temporal Artery 11/20/2016 12:55pm Pulse Rate (adult) 80 bpm (60 - 90) 11/20/2016 12:55pm Respiratory Rate 18 bpm (12 - 24) 11/20/2016 12:55pm Blood Pressure 191/85 mm Hg 11/20/2016 12:55pm O2 Sat by Pulse Oximetry 96 % (90 - 100) 11/20/2016 12:55pm Oxygen Delivery Method 11/20/2016 12:55pm Height 5 ft 8 in Weight 196 lb Body Mass Index 29.0 kg/m^2 Results No known relevant diagnostic tests, laboratory data and/or discharge summary. Procedures No known history of procedures. Encounters Encounter Location Arrival/Admit Date Discharge/Depart Date Attending Provider Departed Emergency Room [place] 11/20/16 11:33am 11/20/16 1:00pm AMY NOEL DO Recent Diagnosis
--- OUTSIDE RECORDS SUMMARY | 2017-08-03 13:49 | XMS REPORT ---
Author Author PAMELLA MURPHY [facility] Address [address] [facility] [address] [place], [place] [phone] Care Team Providers Care Print Buyer Name Role Phone PAMELLA MURPHY PCP Unavailable Allergies and Adverse Reactions Name Reaction Notes Aspirin Plan of Treatment Planned Activity Comments Planned Date Planned Time Plan/Goal GLYCOSYLATED HEMOGLOBIN TEST 08/29/2015 12:00 AM LIPID PANEL 08/29/2015 12:00 AM Multiple drug screening detection [...] 31 miscellaneous needle 08/15/2014 use as directed [employer] Ultra System Kit miscellaneous kit 08/30/2014 use [...] HC BMI BSA BMI Percentile O2 Sat(%) 09/06/2015 10:26:00 AM 132 mmHg 76 mmHg [...] 08/29/2015 12:00 AM GLYCOSYLATED HEMOGLOBIN TEST Returned 08/12/2014 [...] pain b 2014 1:42PM Post laminectomy syndrome b 2014 1:42PM Cauda equina compression Sep 26 [...] 2015 10:29AM Hyperlipidemia Sep 06 2015 10:29AM Payers Insurance Name Company Name Plan Name Plan Number Policy Number Policy Group Number Start Date [facility] Comm [id number] Sunday, 2013 [facility] Comm Plan of [id number] N/A History of Encounters Visit Date Visit Type Provider 09/06/2015 Office visit PAMELLA MURPHY READING EFFICIENCY COURSE DIRECTOR 08/29/2015 Laboratory PAMELLA MURPHY READING EFFICIENCY COURSE DIRECTOR 01/31/2015 Office visit PAMELLA MURPHY READING EFFICIENCY COURSE DIRECTOR 01/23/2015 Office visit PAMELLA MURPHY READING EFFICIENCY COURSE DIRECTOR 01/19/2015 Office visit PAMELLA MURPHY READING EFFICIENCY COURSE DIRECTOR 12/19/2014 Office visit PAMELLA MURPHY READING EFFICIENCY COURSE DIRECTOR 11/18/2014 Office visit PAMELLA MURPHY READING EFFICIENCY COURSE DIRECTOR 11/15/2014 Office visit PAMELLA MURPHY READING EFFICIENCY COURSE DIRECTOR 11/05/2014 Hospital Gil Gtz MD 10/18/2014 Office visit PAMELLA MURPHY READING EFFICIENCY COURSE DIRECTOR 09/26/2014 Office visit Adeel Hodgson MD 08/12/2014 Laboratory PAMELLA MURPHY READING EFFICIENCY COURSE DIRECTOR 08/11/2014 Office visit PAMELLA MURPHY READING EFFICIENCY COURSE DIRECTOR
--- OUTSIDE RECORDS SUMMARY | 2017-08-03 13:49 | XMS REPORT ---
Author Author PAMELLA MURPHY [facility] Address [address] [facility] [address] [place], [place] [id number] Care Team Providers Care Instrumentation Engineering Technician Name Role Phone PAMELLA MURPHY [...] 31 miscellaneous needle 08/15/2014 use as directed [employer] Ultra System Kit miscellaneous kit 08/30/2014 use [...] to exceed 30 mL in 24 hours [place] 7.5-325 mg oral tablet 11/17/2015 01/25/2016 take [...] Returned 11/17/2015 12:00 AM Rocephin 1 gram [facility]#[id number] Reviewed 12/06/2015 12:00 AM LIPID PANEL Returned [...] anterior shoulder pain Jan 25 2016 10:15AM Payers Insurance Name Company Name Plan Name Plan Number Policy Number Policy Group Number Start Date [facility] [id number] Sunday, 2013 [facility] Comm Plan of [id number] N/A History of Encounters Visit Date Visit Type Provider 01/25/2016 Office visit PAMELLA MURPHY NURSE INFECTION CONTROL 01/10/2016 Office visit PAMELLA MURPHY NURSE INFECTION CONTROL 12/07/2015 Office visit PAMELLA MURPHY NURSE INFECTION CONTROL 12/06/2015 Laboratory PAMELLA MURPHY NURSE INFECTION CONTROL 11/28/2015 Office visit PAMELLA MURPHY NURSE INFECTION CONTROL 11/21/2015 Office visit PAMELLA MURPHY NURSE INFECTION CONTROL 11/17/2015 Office visit Bhakti MERINO 11/14/2015 Office visit PAMELLA MURPHY NURSE INFECTION CONTROL 09/06/2015 Office visit PAMELLA MURPHY NURSE INFECTION CONTROL 08/29/2015 Voided PAMELLA MURPHY NURSE INFECTION CONTROL 01/31/2015 Office visit PAMELLA MURPHY NURSE INFECTION CONTROL 01/23/2015 Office visit PAMELLA MURPHY NURSE INFECTION CONTROL 01/19/2015 Office visit PAMELLA MURPHY NURSE INFECTION CONTROL 12/19/2014 Office visit PAMELLA MURPHY NURSE INFECTION CONTROL 11/18/2014 Office visit PAMELLA MURPHY NURSE INFECTION CONTROL 11/15/2014 Office visit PAMELLA MURPHY NURSE INFECTION CONTROL 11/05/2014 Hospital Gil Gtz MD 10/18/2014 Office visit PAMELLA MURPHY NURSE INFECTION CONTROL 09/26/2014 Office visit Adeel Hodgson MD 08/12/2014 Laboratory PAMELLA MURPHY NURSE INFECTION CONTROL 08/11/2014 Office visit PAMELLA MURPHY NURSE INFECTION CONTROL
--- OUTSIDE RECORDS SUMMARY | 2017-08-03 13:50 | XMS REPORT ---
Author Author PAMELLA MURPHY [facility] Address [address] [facility] [address] [place], [place] [phone] Care Team Providers Care Supervisor Drilling And Shooting Name Role Phone PAMELLA MURPHY PCP Unavailable [...] 31 miscellaneous needle 08/15/2014 use as directed [employer] Ultra System Kit miscellaneous kit 08/30/2014 use [...] inhalation route every 4 hours as needed [place] 7.5-325 mg oral tablet 11/17/2015 take 1 tablet by oral route every 4 -6 hours as needed for pain Ciprodex 0.3-0.1 % otic drops,suspension 11/17/2015 11/24/2015 instill 4 drops into right ear by otic route 2 times per day for 7 days Levaquin 750 mg oral tablet 11/21/2015 11/26/2015 take 1 tablet (750 mg) by oral route once daily for 5 days Name Start Date Expiration Date SIG [...] HC BMI BSA BMI Percentile O2 Sat(%) 11/21/2015 10:42:00 AM 140 mmHg 80 mmHg [...] GLYCOSYLATED HEMOGLOBIN TEST Returned 11/17/2015 12:00 AM Carahijered 1 gram [facility]#[id number] Reviewed 08/12/2014 12:00 AM ROUTINE VENIPUNCTURE Reviewed [...] not specified Improving Nov 21 2015 10:46AM Payers Insurance Name Company Name Plan Name Plan Number Policy Number Policy Group Number Start Date [facility] - Community [facility] Comm [id number] Sunday, 2013 [facility] Comm Plan of [id number] N/A History of Encounters Visit Date Visit Type Provider 11/21/2015 Office visit PAMELLA MURPHY SMALL ENGINE TRAINER 11/17/2015 Office visit Bhakti MERINO 11/14/2015 Office visit PAMELLA MURPHY SMALL ENGINE TRAINER 09/06/2015 Office visit PAMELLA MURPHY SMALL ENGINE TRAINER 08/29/2015 Laboratory PAMELLA MURPHY SMALL ENGINE TRAINER 01/31/2015 Office visit PAMELLA MURPHY SMALL ENGINE TRAINER 01/23/2015 Office visit PAMELLA MURPHY SMALL ENGINE TRAINER 01/19/2015 Office visit PAMELLA MURPHY SMALL ENGINE TRAINER 12/19/2014 Office visit PAMELLA MURPHY SMALL ENGINE TRAINER 11/18/2014 Office visit PAMELLA MURPHY SMALL ENGINE TRAINER 11/15/2014 Office visit PAMELLA MURPHY SMALL ENGINE TRAINER 11/05/2014 Hospital Gil Gtz MD 10/18/2014 Office visit PAMELLA MURPHY SMALL ENGINE TRAINER 09/26/2014 Office visit Adeel Hodgson MD 08/12/2014 Laboratory PAMELLA MURPHY SMALL ENGINE TRAINER 08/11/2014 Office visit PAMELLA MURPHY SMALL ENGINE TRAINER
--- OUTSIDE RECORDS SUMMARY | 2017-08-03 13:51 | XMS REPORT ---
Author Author PAMELLA MURPHY [facility] Address [address] [place], [place] [phone] Care Team Providers Care Pathology Technician Name Role Phone PAMELLA MURPHY PCP [...] 31 miscellaneous needle 08/15/2014 use as directed Jascha Ultra System Kit miscellaneous kit 08/30/2014 use [...] by oral route once daily at bedtime doxycycline hyclate 100 mg oral capsule 11/14/2015 11/24/2015 take 1 capsule ( 100 mg) by oral route every 12 hours for 10 days Ventolin HFA 90 mcg/actuation inhalation HFA aerosol inhaler 11/14/2015 inhale 2 puffs (180 mcg) by inhalation route every 4 hours as needed promethazine-codeine 6.25-10 mg/5 mL oral syrup 11/14/2015 take 5 milliliters by oral route every [...] HC BMI BSA BMI Percentile O2 Sat(%) 11/14/2015 1:58:00 PM 138 mmHg 84 mmHg [...] Lumbar Radiculitis b 2014 1:42PM Myofascial pain Feb 2014 1:42PM [...] 1:59PM Acute bronchitis Nov 14 2015 1:59PM Payers Insurance Name Company Name Plan Name Plan Number Policy Number Policy Group Number Start Date [facility] - RHC - Community Plan [facility] RHC Comm [id number] Sunday, 2013 [facility] Community Plan [facility] Comm Plan of [id number] N/A History of Encounters Visit Date Visit Type Provider 11/14/2015 Office visit PAMELLA MURPHY TRAIN OPERATOR 09/06/2015 Office visit PAMELLA MURPHY TRAIN OPERATOR 08/29/2015 Laboratory PAMELLA MURPHY TRAIN OPERATOR 01/31/2015 Office visit PAMELLA MURPHY TRAIN OPERATOR 01/23/2015 Office visit PAMELLA MURPHY TRAIN OPERATOR 01/19/2015 Office visit PAMELLA MURPHY TRAIN OPERATOR 12/19/2014 Office visit PAMELLA MURPHY TRAIN OPERATOR 11/18/2014 Office visit PAMELLA MURPHY TRAIN OPERATOR 11/15/2014 Office visit PAMELLA MURPHY TRAIN OPERATOR 11/05/2014 Hospital Gil Gtz MD 10/18/2014 Office visit PAMELLA MURPHY TRAIN OPERATOR 09/26/2014 Office visit Adeel Hodgson MD 08/12/2014 Laboratory PAMELLA MURPHY TRAIN OPERATOR 08/11/2014 Office visit PAMELLA MURPHY TRAIN OPERATOR
--- OUTSIDE RECORDS SUMMARY | 2017-08-03 13:52 | XMS REPORT ---
Author Author PAMELLA MURPHY [facility] Address [address] [address] [place], [place] [id number] Care Team Providers Care Income Tax Analyst Name Role Phone PAMELLA MURPHY PCP [...] Policy Number Policy Group Number Start Date [facility] - Community [facility] Comm [id number] Sunday, 2013 [facility] Comm Plan of [id number] N/A History of Encounters Visit Date Visit Type Provider 01/31/2015 Office visit PAMELLA MURPHY COTTON PICKER OPERATOR 01/23/2015 Office visit PAMELLA MURPHY COTTON PICKER OPERATOR 01/19/2015 Office visit PAMELLA MURPHY COTTON PICKER OPERATOR 12/19/2014 Office visit PAMELLA MURPHY COTTON PICKER OPERATOR 11/18/2014 Office visit PAMELLA MURPHY COTTON PICKER OPERATOR 11/15/2014 Office visit PAMELLA MURPHY COTTON PICKER OPERATOR 10/18/2014 Office visit PAMELLA MURPHY COTTON PICKER OPERATOR 09/26/2014 Office visit Adeel Hodgson MD 08/12/2014 Laboratory PAMELLA MURPHY COTTON PICKER OPERATOR 08/11/2014 Office visit PAMELLA MURPHY COTTON PICKER OPERATOR
--- OUTSIDE RECORDS SUMMARY | 2017-08-03 13:52 | XMS REPORT ---
Author Author PAMELLA MURPHY [facility] Address [address] [facility] [address] [place], [place] [id number] Care Team Providers Care Inspector Health Care Facilities Name Role Phone PAMELLA MURPHY PCP Unavailable [...] 31 miscellaneous needle 08/15/2014 use as directed [employer] Ultra System Kit miscellaneous kit 08/30/2014 use [...] to exceed 30 mL in 24 hours [place] 7.5-325 mg oral tablet 11/17/2015 01/25/2016 take [...] 11/17/2015 12:00 AM Rocephin 1 gram [facility]#[id number] Reviewed 12/06/2015 12:00 AM LIPID PANEL Returned [...] Policy Group Number Start Date [facility] - Community Plan [facility] Comm [id number] Sunday, 2013 [facility] Comm Plan of [id number] N/A History of Encounters Visit Date Visit Type Provider 01/25/2016 Office visit PAMELLA MURPHY CUTTER HELPER 01/10/2016 Office visit PAMELLA MURPHY CUTTER HELPER 12/07/2015 Office visit PAMELLA MURPHY CUTTER HELPER 12/06/2015 Laboratory PAMELLA MURPHY CUTTER HELPER 11/28/2015 Office visit PAMELLA MURPHY CUTTER HELPER 11/21/2015 Office visit PAMELLA MUPRHY CUTTER HELPER 11/17/2015 Office visit Bhakti MERINO 11/14/2015 Office visit PAMELLA MURPHY CUTTER HELPER 09/06/2015 Office visit PAMELLA MURPHY CUTTER HELPER 08/29/2015 Voided PAMELLA MURPHY CUTTER HELPER 01/31/2015 Office visit PAMELLA MURPHY CUTTER HELPER 01/23/2015 Office visit PAMELLA MURPHY CUTTER HELPER 01/19/2015 Office visit PAMELLA MURPHY CUTTER HELPER 12/19/2014 Office visit PAMELLA MURPHY CUTTER HELPER 11/18/2014 Office visit PAMELLA MURPHY CUTTER HELPER 11/15/2014 Office visit PAMELLA MURPHY CUTTER HELPER 11/05/2014 Hospital Gil Gtz MD 10/18/2014 Office visit PAMELLA MURPHY CUTTER HELPER 09/26/2014 Office visit Adeel Hodgson MD 08/12/2014 Laboratory PAMELLA MURPHY CUTTER HELPER 08/11/2014 Office visit PAMELLA MURPHY CUTTER HELPER
--- OUTSIDE RECORDS SUMMARY | 2017-08-03 13:52 | XMS REPORT ---
Author Author PAMELLA MURPHY [facility] Address [address] [place], [place] [id number] Care Team Providers Care Socket Puller Name Role Phone PAMELLA MURPHY PCP Unavailable [...] use as directed Test Blood Sugar BID One Touch Test stips 08/30/2014 12/28/2014 Test Blood sugar BID for Diabetes Type 2 Neurontin oral capsule 300 mg 09/26/2014 01/24/2015 take 1 capsule (300 mg) by oral route 3 times per day for 30 days hydrocodone-ibuprofen oral tablet 7.5-200 mg 11/18/2014 take 1 tablet by oral route 3 times a day as needed glimepiride oral tablet 2 mg 11/18/2014 take 1 tablet (2 mg) by oral route once daily Name [...] Policy Number Policy Group Number Start Date [facility] [id number] Sunday, 2013 [facility] Comm Plan of [id number] N/A History of Encounters Visit Date Visit Type Provider 12/19/2014 Office visit PAMELLA MURPHY CURED MEAT PACKING SUPERVISOR 11/18/2014 Office visit PAMELLA MURPHY CURED MEAT PACKING SUPERVISOR 11/15/2014 Office visit PAMELLA MURPHY CURED MEAT PACKING SUPERVISOR 10/18/2014 Office visit PAMELLA MURPHY CURED MEAT PACKING SUPERVISOR 09/26/2014 Office visit Adeel Hodgson MD 08/12/2014 Laboratory PAMELLA MURPHY CURED MEAT PACKING SUPERVISOR 08/11/2014 Office visit PAMELLA MURPHY CURED MEAT PACKING SUPERVISOR
--- OUTSIDE RECORDS SUMMARY | 2017-08-03 13:53 | XMS REPORT ---
Author Author PAMELLA MURPHY [facility] Address [address] [facility] [address] [place], [place] [id number] Care Team Providers Care Manager Green Name Role Phone PAMELLA MURPHY PCP Unavailable PAMELLA MURPHY PreferredProvider Unavailable Allergies and Adverse Reactions Name Reaction Notes Aspirin Plan of Treatment Planned Activity Comments Planned Date Planned Time Plan/Goal IM Injection 11/17/2015 12:00 AM Injection Of Immunization, Single [facility] Medicaid 05/29/2016 12:00 AM Hemoglobin A1C 07/02/2016 [...] 31 miscellaneous needle 08/15/2014 use as directed [employer] Ultra System Kit miscellaneous kit 08/30/2014 use [...] to exceed 30 mL in 24 hours [place] 7.5-325 mg oral tablet 11/17/2015 01/25/2016 take [...] Returned 11/17/2015 12:00 AM Rocephin 1 gram [facility]#[id number] Reviewed 12/06/2015 12:00 AM ROUTINE VENIPUNCTURE Reviewed [...] Vis Given Vis Pub CVX Pneumococcal 05/29/2016 [employer] PFR Prevnar 13 [id number] Intramuscular Left Deltoid 05/29/2016 06/29/2015 133 History [...] Number Policy Group Number Start Date [facility] - Community [facility] Comm [id number] Sunday, 2013 [facility] Comm Plan of [id number] N/A History of Encounters Visit Date Visit Type Provider 07/02/2016 Laboratory PAMELLA MURPHY HAT BODY INSPECTOR 05/29/2016 Nurse visit PAMELLA MURPHY HAT BODY INSPECTOR 05/21/2016 Office visit PAMELLA MURPHY HAT BODY INSPECTOR 03/19/2016 Laboratory PAMELLA MURPHY HAT BODY INSPECTOR 01/25/2016 Office visit PAMELLA MURPHY HAT BODY INSPECTOR 01/10/2016 Office visit PAMELLA MURPHY HAT BODY INSPECTOR 12/07/2015 Office visit PAMELLA MURPHY HAT BODY INSPECTOR 12/06/2015 Laboratory PAMELLA MURPHY HAT BODY INSPECTOR 11/28/2015 Office visit PAMELLA MURPHY HAT BODY INSPECTOR 11/21/2015 Office visit PAMELLA MURPHY HAT BODY INSPECTOR 11/17/2015 Office visit Bhakti MERINO 11/14/2015 Office visit PAMELLA MURPHY HAT BODY INSPECTOR 09/06/2015 Office visit PAMELLA MURPHY HAT BODY INSPECTOR 08/29/2015 Voided PAMELLA MURPHY HAT BODY INSPECTOR 01/31/2015 Office visit PAMELLA MURPHY HAT BODY INSPECTOR 01/23/2015 Office visit PAMELLA MURPHY HAT BODY INSPECTOR 01/19/2015 Office visit PAMELLA MURPHY HAT BODY INSPECTOR 12/19/2014 Office visit PAMELLA MURPHY HAT BODY INSPECTOR 11/18/2014 Office visit PAMELLA MURPHY HAT BODY INSPECTOR 11/15/2014 Office visit PAMELLA MURPHY HAT BODY INSPECTOR 11/05/2014 Hospital Gil Gtz MD 10/18/2014 Office visit PAMELLA MURPHY HAT BODY INSPECTOR 09/26/2014 Office visit Adeel Hodgson MD 08/12/2014 Laboratory PAMELLA MURPHY APRN 08/11/2014 Office visit PAMELLA MURPHY APRN
--- OUTSIDE RECORDS SUMMARY | 2017-08-03 13:53 | XMS REPORT | Continuity of Care Document ---
Author Author [facility] Organization [facility] Address Unknown Phone Unavailable Allergies Medications Problems Procedures Results Encounters ACCT No. Visit Date/Time Discharge Status Pt. Type Provider Facility Loc./Unit Complaint [id number] 11/05/2016 10:09:48 11/05/2016 23: 59:59 CLS Outpatient PAMELLA MURPHY [id number] 08/05/2016 10:36:11 08/05/2016 23: 59:59 CLS Outpatient PAMELLA MURPHY [id number] 07/02/2016 09:05:48 07/02/2016 23: 59:59 CLS Outpatient PAMELLA MURPHY [id number] 05/29/2016 16:52:08 05/29/2016 23: 59:59 CLS Outpatient PAMELLA MURPHY [id number] 05/21/2016 11:18:03 05/21/2016 23: 59:59 CLS Outpatient PAMELLA MURPHY [id number] 03/19/2016 09:00:27 03/19/2016 23: 59:59 CLS Outpatient PAMELLA MURPHY [id number] 11/21/2015 11:32:31 11/21/2015 23: 59:59 CLS Outpatient PAMELLA MURPHY [id number] 11/17/2015 11:45:11 11/17/2015 23: 59:59 CLS Outpatient Bhakti Ennis [id number] 11/14/2015 14:44:50 11/14/2015 23: 59:59 CLS Outpatient PAMELLA MURPHY [id number] 09/06/2015 10:56:48 09/06/2015 23: 59:59 CLS Outpatient PAMELLA MURPHY [id number] 08/29/2015 09:19:46 08/29/2015 23: 59:59 CLS Outpatient PAMELLA MURPHY [id number] 04/03/2015 22:29:11 04/03/2015 23: 59:59 CLS Outpatient Gil Gtz [id number] 04/03/2015 21:51:57 04/03/2015 23: 59:59 CLS Outpatient PAMELLA MURPHY [id number] 04/03/2015 21:45:54 04/03/2015 23: 59:59 CLS Outpatient PAMELLA MURPHY [id number] 04/03/2015 21:43:34 04/03/2015 23: 59:59 CLS Outpatient PAMELLA MURPHY [id number] 12/19/2014 11:25:13 12/19/2014 23: 59:59 CLS Outpatient PAMELLA MURPHY [id number] 11/18/2014 11:19:11 11/18/2014 23: 59:59 CLS Outpatient PAMELLA MURPHY [id number] 11/15/2014 14:28:13 11/15/2014 23: 59:59 CLS Outpatient PAMELLA MURPHY [id number] 09/26/2014 14:08:57 09/26/2014 23: 59:59 CLS Outpatient Adeel Hodgson [id number] 08/12/2014 10:05:08 08/12/2014 23: 59:59 CLS Outpatient PAMELLA MURPHY [id number] 08/11/2014 11:26:11 08/11/2014 23: 59:59 CLS Outpatient PAMELLA MURPHY
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
[2017-08-03] MEDS ORDERED: KETOROLAC 60 MG/2 ML VIAL IM ONE (14:30)
[2017-08-03 14:40] VITALS: BP 141/86
== END 2017-08-03 14:40 | disposition home or self-care (01) ==
LOC: ER 13:12
DX: M25.512 Pain in left shoulder (principal); G89.29 Other chronic pain; M54.6 Pain in thoracic spine; I25.10 Atherosclerotic heart disease of native coronary artery without angina pectoris; E78.00 Pure hypercholesterolemia, unspecified; I10 Essential (primary) hypertension; M19.90 Unspecified osteoarthritis, unspecified site; F17.210 Nicotine dependence, cigarettes, uncomplicated; Z95.5 Presence of coronary angioplasty implant and graft; Z95.1 Presence of aortocoronary bypass graft; X50.1XXA Overexertion from prolonged static or awkward postures, initial encounter; Y92.59 Other trade areas as the place of occurrence of the external cause
CPT/HCPCS: 99284